=== PATIENT | female | born 1945 | race Caucasian/White ===

== ENCOUNTER 2018-10-21 11:00 | Inpatient (IN) ==
[2018-10-21 11:46] LABS: BASO# 0.03 X1000 (0.0-0.2); BASO% 0.1 % (0.0-0.8); EOS# 0.01 X1000 (0.0-0.7); HEMATOCRIT 33.4 % (37.0-47.0); HEMOGLOBIN 10.5 g/dL (12.0-16.0); IMM GRAN# 0.08 X1000 (0.0-0.04); IMM GRAN% 0.3 % (0.0-0.5); LYMPH# 1.53 X1000 (1.2-3.4); LYMPH% 6.5 % (20.5-51.1); MCH 27.8 PG (27-31); MCHC 31.4 g/dL (33-37); MCV 88.4 FL (81-99); MONO# 1.71 X1000 (0.11-0.59); MONO% 7.3 % (1.7-9.3); MPV 10.4 FL (7.4-10.4); NEUT# 20.02 X1000 (1.4-6.5); NEUT% 85.8 % (42.2-75.2); PLT 239 X1000 (130-400); RBC 3.78 XMIL (4.2-5.4); WBC 23.38 X1000 (4.8-10.8)
[2018-10-21 11:49] LABS: INR 1.52; PROTIME 18.6 Seconds (11.0-16.0)
[2018-10-21 11:50] LABS: PTT 31.7 Seconds (22.3-41.8)
[2018-10-21] MEDS ORDERED: NS 1,000 ML IV ONE ×3 (11:57→11:58)
[2018-10-21 12:08] LABS: AGAP 11; ALB/GLOB RATIO 1.5; ALBUMIN 3.4 g/dL (3.5-5.0); ALKALINE PHOSPHATASE 94 U/L (32-104); BUN 16 mg/dL (8-22); CALCIUM 8.3 mg/dL (8.8-10.2); CHLORIDE 99 mmol/L (98-107); COSMO 282; CREATININE 0.9 mg/dL (0.5-0.9); ESTIMATED GFR > 60; GLUCOSE 266 mg/dL (70-104); GOT 49 U/L (10-30); GPT 11 U/L (10-36); POTASSIUM 4.4 mmol/L (3.5-5.1); SODIUM 136 mmol/L (136-145); TCO2 26 mmol/L (25-35); TOTAL BILIRUBIN 0.33 mg/dL (0.20-1.00); TOTAL PROTEIN 5.7 g/dL (6.3-8.3)
[2018-10-21] MEDS ORDERED: LEVAQUIN 500 MG/D5W 500 MG/100 ML IVPB IV ONE (12:11)
[2018-10-21 12:12] LABS: CK PROFILE 228 U/L (24-173)
[2018-10-21 12:16] LABS: URINE SOURCE CATH
--- NOTE | 2018-10-21 12:21 | Diag Imaging Result Doc PS360 ---
CHEST-1 VIEW - 10/21/2018 INDICATION: shortness of breath COMPARISON: 12/24/2017 FINDINGS: There is ill-defined infiltrate in the right upper lobe. There is cardiomegaly and mild pulmonary vascular congestion. No pneumothorax or large pleural effusion. IMPRESSION: Right upper lobe infiltrate/pneumonia. Cardiomegaly and pulmonary vascular congestion. Electronically signed by Chuck Dawson 10/21/2018 12:19 PM
[2018-10-21 12:22] LABS: BILIRUBIN URINE NEGATIVE (NEGATIVE); BLOOD URINE NEGATIVE (NEGATIVE); COLOR YELLOW; GLUCOSE URINE NEGATIVE (NEGATIVE); KETONE URINE NEGATIVE (NEGATIVE); LEUKOCYTES URINE SMALL (NEGATIVE); NITRITE URINE POSITIVE (NEGATIVE); PH URINE 5.5; PROTEIN URINE TRACE mg/dL (NEGATIVE); SP GRAVITY URINE 1.021; TURBIDITY URINE HAZY (CLEAR); UROBILINOGEN URINE NORMAL (NORMAL)
[2018-10-21 12:24] LABS: UR EPITHELIAL CELLS >10 /HPF (<10); URINE BACTERIA 4+ /HPF; URINE RBC <10 /HPF (<10)
[2018-10-21 12:29] LABS: CK INDEX 15.7 (0.0-2.5)
[2018-10-21] MEDS ORDERED: VANCOMYCIN IV PER PHARMACY MISC SCH (13:15)
[2018-10-21] MEDS ORDERED: ZOSYN 3.375 GM in NS 50 ML IV SCH (13:15)
[2018-10-21] MEDS ORDERED: NS 1,000 ML IV SCH (13:30)
--- NOTE | 2018-10-21 13:51 | PROVIDER DOCUMENTATION ---
This chart was entered by Lea Boykin Scribe, acting as scribe for Filiberto Dominguez DO. HPI-Respiratory General - General Stated Complaint: SOB/WHEEZING Time Seen by Provider: 10/21/18 11:04 Source: EMS Allergies/Adverse Reactions: Patient Allergies Allergy/AdvReac Type Severity Reaction Status Date / Time Penicillins Allergy Unknown Verified 10/21/18 13:20 Sulfa (Sulfonamide Allergy Unknown Verified 10/21/18 13:20 Antibiotics) Home Medications: Home Medication List Medication Instructions Recorded Confirmed Last Taken Type Aspirin [Aspirin EC] 81 mg PO DAILY #90 tablet. 01/11/15 10/21/18 10/21/18 Rx Lisinopril 10 mg PO DAILY 04/06/15 10/21/18 10/21/18 History Buspirone [Buspar] 15 mg PO BID 08/30/17 10/21/18 10/21/18 History Hydralazine [Apresoline] 25 mg PO TID 08/30/17 10/21/18 10/21/18 History Tizanidine HCl 4 mg PO TID 08/30/17 10/21/18 10/21/18 History Apixaban [Eliquis] 5 mg PO BID 10/20/17 10/21/18 10/21/18 History Omeprazole 40 mg PO DAILY 10/20/17 10/21/18 10/21/18 History Diltiazem HCl [Cardizem Cd] 240 mg PO DAILY #60 cap.er.24h 01/01/18 10/21/18 10/21/18 Rx Docusate Sodium [Colace] 200 mg PO QHS capsule 01/01/18 10/21/18 10/20/18 Rx Folic Acid 1 mg PO DAILY tablet 01/01/18 10/21/18 10/21/18 Rx Furosemide [Lasix] 40 mg PO DAILY #0 01/01/18 10/21/18 10/21/18 Rx Iron Carbonyl/Ascorbic Acid 1 each PO DAILY tablet 01/01/18 10/21/18 10/21/18 Rx [Icar-C] Magnesium Hydroxide [Milk of 30 ml PO DAILY PRN PRN udc 01/01/18 Unknown Rx Magnesia] Metoprolol Succinate [Toprol Xl] 50 mg PO DAILY #60 tab.er.24h 01/01/18 10/21/18 10/21/18 Rx Oxycodone I.r. [Oxy Ir] 5 mg PO Q3H PRN PRN #40 tab 01/01/18 10/21/18 Unknown Rx Acetaminophen 2 tab PO PRN PRN 10/21/18 10/21/18 10/21/18 History Cetirizine [Zyrtec] 1 tab PO DAILY 10/21/18 10/21/18 10/21/18 History Cyanocobalamin (Vitamin B-12) 1 tab PO DAILY 10/21/18 10/21/18 10/21/18 History [Cyanocobalamin] Duloxetine [Cymbalta] 2 tab PO DAILY 10/21/18 10/21/18 10/21/18 History Ferrous Sulfate [Albafort] 1 tab PO BID 10/21/18 10/21/18 10/21/18 History Gabapentin 1 tab PO 4XDAY 10/21/18 10/21/18 10/21/18 History Metoprolol [Lopressor] 0.5 tab PO QHS 10/21/18 10/21/18 10/20/18 History Metronidazole [Flagyl] 1 tab PO BID 10/21/18 10/21/18 10/21/18 History Multivitamin with Folic Acid 1 tab PO DAILY 10/21/18 10/21/18 10/21/18 History [Thera Tablet] Oxycodone HCl 1 tab PO QHS 10/21/18 10/21/18 10/20/18 History Tramadol HCl 0.5 tab PO TID 10/21/18 10/21/18 10/21/18 History - History of Present Illness-Resp Nature of Presenting Problem: Patient is a 73 year old female who presents to the ED via EMS with shortness of breath. EMS states jail staff stated patient has nasal drainage, fever and wheezing with shortness of breath. EMS states patient's O2 sat was 89% on room air. Patient denies chest pain. Quality of Pain: reports: tightness Severity in ED: reports: mild Onset/Duration: reports: 24 hours ago Timing: reports: still present, getting worse Associated Symptoms: reports: fever/chills (fever), nasal drainage, shortness of breath, wheezing Similar Symptoms Previously?: Yes Recently seen or treated by another doctor?: No Review of Systems - Adult - REVIEW OF SYSTEMS - ADULT Constitutional: reports: see HPI, fever. denies: chills, fatique Eyes: reports: no symptoms reported Ears, Nose, Mouth & Throat: reports: see HPI, sinus problem (drainage). denies: ear pain, throat pain Cardiovascular: reports: no symptoms reported Respiratory: reports: see HPI, shortness of breath, wheezing. denies: hemoptysis Gastrointestinal: reports: no symptoms reported Genitourinary: reports: no symptoms reported Musculoskeletal: reports: no symptoms reported Integumentary: reports: no symptoms reported Neurological: reports: no symptoms reported Psychiatric: reports: no symptoms reported Endocrine: reports: no symptoms reported Hematologic/Lymphatic: reports: no symptoms reported Allergic/Immunologic: reports: no symptoms reported All Other Systems: Reviewed and Negative Past History - Adult - PAST MEDICAL HISTORY-ADULT Review of Records: reports: Old Records Reviewed, Nursing Assessment Review, Medications Reviewed, Social history reviewed & non-contributory. Major Childhood Illnesses: reports: denies history Cardiovascular: reports: A-Fib, CAD, CHF, HTN, hyperlipidemia Respiratory: reports: asthma, COPD Gastrointestinal: reports: GERD Obstetrical/Gynecological: reports: denies history Genitourinary: reports: denies history Musculoskeletal: reports: denies history Neurological: reports: cancer/tumor, dementia Psychiatric: reports: anxiety, depression Endocrine/Immune: reports: Diabetes Other Conditions: reports: denies history - PRIOR SURGERIES/PROCEDURES Surgical/Procedure History: reports: hysterectomy - IMMUNIZATION STATUS Childhood Immunizations: See Nurse Assessment Flu Vaccine: See Nurse Assessment - FAMILY HISTORY Family History: reviewed, not pertinent - SOCIAL HISTORY Smoking: cigarettes (former) Substance Use: denies Living Situation: care facility (SNF) Physical Exam-General - PHYSICAL EXAM-ADULT Initial Vital Signs Reviewed: Yes - CONSTITUTIONAL General Appearance: alert, no apparent distress. negative: lethargic - EYES Eyes: PERRL/EOMI, pink conjunctivae. negative: sunken eyes - HEAD, EARS, NOSE, MOUTH & THROAT HENMT: normocephalic/atraumatic, moist mucous membranes, pharynx normal. negative: angioedema - RESPIRATORY Respiratory: chest non-tender, wheezing (bilateral). negative: respiratory distress - CARDIOVASCULAR Cardiovascular: normal peripheral pulses, regular rate, rhythm. negative: tachycardia, systolic murmur - GASTROINTESTINAL (ABDOMEN) Abdominal Exam: normal bowel sounds, non tender, soft. negative: guarding - MUSCULOSKELETAL Extremity: non-tender, normal inspection. negative: deformity, erythema - SKIN Integumentary: normal color, normal turgor, warm/dry. negative: cyanosis, diaphoresis, ecchymosis, rash - NEUROLOGIC Neurologic: grossly normal. negative: aphasia, facial droop - PSYCHIATRIC Psych/Mental Status: normal mood/affect, other (oriented to person and place. disoriented to time). negative: anxious, paranoid Progress - PLAN OF CARE/RESULTS Progress/Plan/Lab Results: Vital Signs - 8 hr 10/21/18 11:11 10/21/18 11:17 10/21/18 11:27 Temperature 98.5 F Pulse Rate 88 Respiratory Rate 20 Blood Pressure 104/80 104/80 O2 Sat by Pulse Oximetry 100 100 95 10/21/18 12:00 10/21/18 12:11 10/21/18 12:41 Temperature Pulse Rate 96 H 90 93 H Respiratory Rate 22 21 23 Blood Pressure 110/74 120/76 O2 Sat by Pulse Oximetry 99 99 98 10/21/18 12:42 10/21/18 13:00 Temperature Pulse Rate 92 H 87 Respiratory Rate 23 20 Blood Pressure O2 Sat by Pulse Oximetry 96 Laboratory Results - last 24 hr 10/21/18 10/21/18 10/21/18 11:20 11:20 11:20 WBC 23.38 H RBC 3.78 L Hgb 10.5 L Hct 33.4 L MCV 88.4 MCH 27.8 MCHC 31.4 L RDW Std Deviation 14.0 Plt Count 239 MPV 10.4 Immature Gran % (Auto) 0.3 Neut % (Auto) 85.8 H Lymph % (Auto) 6.5 L [place] % (Auto) 7.3 Eos % (Auto) 0.0 Baso % (Auto) 0.1 Immature Gran # (Auto) 0.08 H Neut # (Auto) 20.02 H Lymph # (Auto) 1.53 [place] # (Auto) 1.71 H Eos # (Auto) 0.01 Baso # (Auto) 0.03 PT INR PTT (Actin FS) Sodium 136 Potassium 4.4 Chloride 99 Carbon Dioxide 26 Anion Gap 11 BUN 16 Creatinine 0.9 Estimated GFR/1.73 m2 > 60 BUN/Creatinine Ratio 18 Glucose 266 H Calculated Osmolality 282 Calcium 8.3 L Total Bilirubin 0.33 AST 49 H ALT 11 Alkaline Phosphatase 94 Creatine Kinase 228 H Creatine Kinase Index 15.7 H CK-MB (CK-2) 35.70 H Troponin T Zxi-M-[id number] Pept Total Protein 5.7 L Albumin 3.4 L Globulin 2.3 Albumin/Globulin Ratio 1.5 Plasma Lactate 3.7 H Urine Source Urine Color Urine Turbidity Urine pH Ur Specific [place] Urine Protein Ur Glucose (Stick) Ur Ketones (Stick) Urine Blood Urine Nitrite Urine Bilirubin Urobilinogen Dipstick Urine Leukocytes Urine WBC (Auto) Urine RBC (Auto) U Epithel Cells (Auto) Urine Bacteria (Auto) 10/21/18 10/21/18 10/21/18 11:20 11:20 11:20 WBC RBC Hgb Hct MCV MCH MCHC RDW Std Deviation Plt Count MPV Immature Gran % (Auto) Neut % (Auto) Lymph % (Auto) [place] % (Auto) Eos % (Auto) Baso % (Auto) Immature Gran # (Auto) Neut # (Auto) Lymph # (Auto) [place] # (Auto) Eos # (Auto) Baso # (Auto) PT 18.6 H INR 1.52 PTT (Actin FS) 31.7 Sodium Potassium Chloride Carbon Dioxide Anion Gap BUN Creatinine Estimated GFR/1.73 m2 BUN/Creatinine Ratio Glucose Calculated Osmolality Calcium Total Bilirubin AST ALT Alkaline Phosphatase Creatine Kinase Creatine Kinase Index CK-MB (CK-2) Troponin T 0.987 H* Tex-S-Dwbyazhdidu Pept 41315 H Total Protein Albumin Globulin Albumin/Globulin Ratio Plasma Lactate Urine Source Urine Color Urine Turbidity Urine pH Ur Specific [place] Urine Protein Ur Glucose (Stick) Ur Ketones (Stick) Urine Blood Urine Nitrite Urine Bilirubin Urobilinogen Dipstick Urine Leukocytes Urine WBC (Auto) Urine RBC (Auto) U Epithel Cells (Auto) Urine Bacteria (Auto) 10/21/18 12:12 WBC RBC Hgb Hct MCV MCH MCHC RDW Std Deviation Plt Count MPV Immature Gran % (Auto) Neut % (Auto) Lymph % (Auto) [place] % (Auto) Eos % (Auto) Baso % (Auto) Immature Gran # (Auto) Neut # (Auto) Lymph # (Auto) [place] # (Auto) Eos # (Auto) Baso # (Auto) PT INR PTT (Actin FS) Sodium Potassium Chloride Carbon Dioxide Anion Gap BUN Creatinine Estimated GFR/1.73 m2 BUN/Creatinine Ratio Glucose Calculated Osmolality Calcium Total Bilirubin AST ALT Alkaline Phosphatase Creatine Kinase Creatine Kinase Index CK-MB (CK-2) Troponin T Gqi-A-Cqxgqorlrjk Pept Total Protein Albumin Globulin Albumin/Globulin Ratio Plasma Lactate Urine Source CATH Urine Color YELLOW Urine Turbidity HAZY Urine pH 5.5 Ur Specific [place] 1.021 Urine Protein TRACE A Ur Glucose (Stick) NEGATIVE Ur Ketones (Stick) NEGATIVE Urine Blood NEGATIVE Urine Nitrite POSITIVE A Urine Bilirubin NEGATIVE Urobilinogen Dipstick NORMAL Urine Leukocytes SMALL A Urine WBC (Auto) 10-20 A Urine RBC (Auto) <10 U Epithel Cells (Auto) >10 A Urine Bacteria (Auto) 4+ Orders Category Date [facility] Routine AdmDCTranf 10/21/18 13:22 Active Activity - Up with Assistance ORDERED Care 10/21/18 13:22 Active Cardiac Monitoring DIRECTED Care 10/21/18 11:20 Active IV Insertion ORDERED Care 10/21/18 11:20 Completed Notify MD of + Sepsis Screen NOW Care 10/21/18 11:20 Active Notify Physician As Ordered Care 10/21/18 11:20 Active Nursing- MD Consult Request ROUTINE Care 10/21/18 13:22 Active Resuscitation Status Routine Care 10/21/18 13:17 Ordered Update & Confirm Home Medicati ROUTINE Care 10/21/18 13:23 Active Physician/Provider Consults Routine Cons 10/21/18 13:22 Ordered Heart Healthy Diet Diet 10/21/18 13:23 Active CHEST-1 VIEW [RAD] Stat Exams 10/21/18 11:20 Completed BLOOD CULTURE [BLDCUL] Stat Lab 10/21/18 11:21 Results CBC WITH ELECTRONIC DIFF [HEME] Stat Lab 10/21/18 11:20 Completed CK PROFILE [SP CHEM] Stat Lab 10/21/18 11:20 Completed COMPREHENSIVE METABOLIC PANEL [CHEM] Stat Lab 10/21/18 11:20 Completed LACTATE, PLASMA [CHEM] Lab 10/21/18 14:30 Uncollected LACTATE, PLASMA [CHEM] Lab 10/21/18 17:30 Uncollected LACTATE, PLASMA [CHEM] Q3H Lab 10/21/18 11:20 Completed LEGIONELLA AG URINE [LEE] Routine Lab 10/21/18 12:12 Received PRO B-NATRIURETIC PEPTIDE Stat Lab 10/21/18 11:20 Completed PROTIME WITH INR [COAG] Stat Lab 10/21/18 11:20 Completed PTT [COAG] Stat Lab 10/21/18 11:20 Completed SPUTUM CULTURE WITH GRAM STAIN [] Stat Lab 10/21/18 12:49 Uncollected STREP PNEUMO AG URINE [[place]] Routine Lab 10/21/18 12:12 Received TROPONIN T Stat Lab 10/21/18 11:20 Completed URINALYSIS W/POSS RFLX CULT [URINALYSIS] Stat Lab 10/21/18 12:12 Completed URINE CULTURE [] Routine Lab 10/21/18 12:31 Received 0.9% Sodium Chloride Inj [Ns] 1,000 ml Med 10/21/18 13:30 Active IV 50 mls/hr 0.9% Sodium Chloride Inj [Ns] 1,000 ml Med 10/21/18 11:57 Discontinued IV 999 mls/hr 0.9% Sodium Chloride Inj [Ns] 1,000 ml Med 10/21/18 11:58 Discontinued IV 999 mls/hr 0.9% Sodium Chloride Inj [Ns] 1,000 ml Med 10/21/18 11:58 Discontinued IV 999 mls/hr Budesonide [Pulmicort] Med 10/21/18 19:30 Active 0.5 mg INH RTBID CefEPIME [Maxipime] 1 gm Med 10/21/18 14:00 Active 0.9% Sodium Chloride Inj [Ns] 50 ml IV Q12H Ipratropium [place] Neb [Atrovent Neb] Med 10/21/18 15:30 Active 0.5 mg INH RTQ4H Levalbuterol Neb [Xopenex Neb] Med 10/21/18 15:30 Active 1.25 mg INH RTQ4H Levofloxacin 500 mg/D5w [Levaquin 500 mg/D5w] Med 10/21/18 12:11 Discontinued 500 mg in 100 ml IV NOW Pharmacy Order [Vancomycin IV Per Pharmacy] Med 10/21/18 13:15 Active 1 each MISC DIRECTED Piperacillin/Tazobactam [Zosyn] 3.375 gm Med 10/21/18 13:15 Discontinued 0.9% Sodium Chloride Inj [Ns] 50 ml IV Q6H Aerosol Treatments Routine Oth 10/21/18 13:22 Active Oxygen Device Stat Oth 10/21/18 11:20 Active EKG [EKG] Stat Ther 10/21/18 13:00 Ordered Transfer/Admit Order [TRANSFER] Routine Transfer 10/21/18 13:17 Ordered Result Diagrams: 10/21/18 11:20 10/21/18 11:20 - EKG 1 Time of EKG reading by physician:: 11:08 EKG Read and Signed by:: Filiberto Dominguez EKG Interpretation (*Must complete 3 of following elements*): Abnormal (rhythm - atrial fibrillation with rapid ventricular response with premature ventricular or aberrantly conducted complexes. marked ST abnormality, possible lateral subendocardial injury.) Rate: 108 [place]: normal ST Wave: normal Comments: possible inferior infarct, age undetermined; - XRAY 1 XRAY Study: Chest Impression: See EMR Report ( CHEST-1 VIEW - 10/21/2018 INDICATION: shortness of breath COMPARISON: 12/24/2017 FINDINGS: There is ill-defined infiltrate in the right upper lobe. There is cardiomegaly and mild pulmonary vascular congestion. No pneumothorax or large pleural effusion. IMPRESSION: Right upper lobe infiltrate/pneumonia. Cardiomegaly and pulmonary vascular congestion. Electronically signed by Chuck Dawson 10/21/2018 12:19 PM 10/21/18 1219 Interpreting Physician: Chuck Dawson MD Dictated Date/Time: 10/21/18 1218 cc: Filiberto Dominguez DO; Franc Baltazar MD) - CONSULTS/PCP/HOSPITALIST Notification #1 *Consult/PCP/Hospitalist*: MONISHA Rosales for Hospitalist Time Discussed: 12:33 Reason/Comments: Dr. Dominguez consulted with Connie about patient. Consult Disposition: other (consult Insurance Processing Clerk) #2 Consult: Dr. Conway Time Discussed: 13:22 Reason/Comments: Dr. Dominguez consulted with Dr. Conway about patient. Consult Disposition: other (Dr. Conway states he will consult on patient.) #3 Consult: MONISHA Rosales for Hospitalist Time Discussed: 13:16 Reason/Comments: Dr. Dominguez consulted with Connie about patient. Consult Disposition: Will see in ED, Admit Departure - Departure Date of Disposition Decision: 10/21/18 Time of Disposition Decision: 12:33 DIAGNOSIS: Pneumonia, Atrial fibrillation with RVR, NSTEMI (non-ST elevation myocardial infarction) Disposition: ADMITTED INPATIENT 09 Certified Medical Emergency: Emergent Condition: Fair - Critical Care Note This patient required my direct & personal management of CC.: No Attestation - Physician/ NOEL Attestation The physician spent face to face time with patient:: Yes Advanced Practice Provider documentation review:: Supervising physician onsite and consulted in the evaluation and care of this patient. The physician did have a face to face encounter with the patient. This chart was documented by the indicated scribe, (Lea Boykin Scribe) and accurately reflects the services I performed and decisions made by me, Filiberto Dominguez DO, as attested by the provider's signature.
[2018-10-21] MEDS: MAXIPIME 1 GM in NS 50 ML IV SCH (14:19)
[2018-10-21] MEDS: LASIX IV SCH ×2 (14:32→20:59)
[2018-10-21] MEDS ORDERED: SOLU-MEDROL IV ONE (14:35)
--- NOTE | 2018-10-21 14:37 | EKG Report ---
Test Performed on : 10/21/2018 11:08:54 AM Test Reason : abnormal ekg Blood Pressure : / mmHG Vent. Rate : 108 BPM Atrial Rate : 110 BPM P-R Int : 000 ms QRS Dur : 100 ms QT Int : 364 ms P-R-T Axes : 000 024 173 degrees QTc Int : 487 ms Atrial fibrillation. with rapid ventricular response. with premature ventricular or aberrantly conduc giuseppe complexes. Possible Inferior infarct (cited on or before 30-AUG-2017) Marked ST abnormality, possible lateral subendocardial injury Abnormal ECG When compared with ECG of 26-DEC-2017 00:41, T wave inversion more evident in Lateral leads Unconfirmed Result
[2018-10-21] MEDS ORDERED: LASIX ONE (14:40)
[2018-10-21] MEDS: ATROVENT NEB INH SCH ×3 (14:58→23:39)
[2018-10-21] MEDS: XOPENEX NEB INH SCH ×3 (14:58→23:39)
[2018-10-21] MEDS ORDERED: VANCOMYCIN 1,700 MG in NS 250 ML IV ONE (15:00)
[2018-10-21] MEDS ORDERED: OXY IR PO PRN ×2 (15:06→16:06)
[2018-10-21] MEDS ORDERED: ZANAFLEX PO PRN (16:07)
[2018-10-21 16:08] LABS: CK INDEX 13.2 (0.0-2.5); CK-MB 44.98 ng/mL (0.0-5.0)
[2018-10-21] MEDS ORDERED: ASPIRIN PO STA (16:19)
[2018-10-21] MEDS ORDERED: LOPRESSOR PO ONE (16:21)
--- NOTE | 2018-10-21 16:22 | HISTORY AND PHYSICAL ---
PRIMARY CARE PROVIDER: Franc Baltazar MD. CHIEF COMPLAINT: Shortness of breath and choking. HISTORY OF PRESENT ILLNESS: Ms. Tremaine Fernandes is a 73-year-old female with a medical history of coronary artery disease, congestive heart failure, and diabetes who presents from [facility] with complaints of choking sensation and shortness of breath over the last 1 to 2 weeks. She has a nonproductive cough. She denies fever or chest pain. Laboratory data reveals that she has an elevated white blood cell count number of 23,000 with a serum lactate of 3.7. Chest x-ray shows a right upper lobe pneumonia which is consistent with more of an aspiration pneumonia given the fact that she is complaining of having periods of feeling like she is choking when she has eaten. She also has elevated troponin of 0.987 and index of 15 but denies any chest pain. Her proBNP is 15,000. Actually during assessment and interview, she started to develop pulmonary edema secondary to receiving IV fluid boluses due to elevated lactate and the sepsis. Review of her last echocardiogram in December 2017, she had an ejection fraction of 30%. It is noted that she does have a urinalysis that appears to be positive with urinary tract infection versus something that is chronic. She denies having any urinary symptoms at this time. Cardiology has been consulted. We will admit to the PCV unit for close observation. PAST MEDICAL HISTORY: 1. History of brain cancer with a craniotomy and brain tumor resection. 2. Coronary artery disease status post LAD stent in 2008. She states there were 2 stents. 3. Hypertension. 4. Chronic atrial fibrillation on Eliquis. 5. Diabetes mellitus type 2 without insulin. 6. Anxiety, depression. 7. GERD. 8. Chronic systolic congestive heart failure. In 2014, she had an EF of 60%, but then in 2018 it was down to 30%. 9. Hyperlipidemia. 10. COPD. 11. Current tobacco abuse. 12. Chronic pain. 13. Left eye blindness. PAST SURGICAL HISTORY: 1. Cardiac stent to the LAD x2 in 2008. 2. Left hip replacement. 3. Brain tumor resection. SOCIAL HISTORY: She has been living in [facility] less than 1 year but states she still continues to smoke about a pack per day. She has been smoking since age of 12. She denies any alcohol or illicit drug use. FAMILY HISTORY: She denies. ALLERGIES: Penicillin and sulfa. HOME MEDICATIONS: 1. Toprol extended release; metoprolol succinate 50 mg p.o. daily. On top of that she also takes an extra dose of immediate release 25 mg at night. 2. Oxycodone 5 mg p.o. nightly. 3. Tylenol 650 mg p.o. as needed q.4 hours. 4. Ferrous sulfate 325 mg p.o. twice a day. 5. Hydralazine 25 mg p.o. t.i.d. 6. BuSpar 15 mg p.o. twice a day. 7. Vitamin B12, 1000 mcg p.o. daily. 8. Cymbalta 40 mg p.o. daily. 9. Eliquis 5 mg p.o. twice daily. 10. Flagyl 500 mg p.o. twice daily which was supposed to stop on the . 11. Neurontin 300 mg p.o. 4 times a day. 12. Lisinopril 10 mg p.o. daily. 13. Omeprazole 40 mg p.o. daily. 14. Multivitamin with folic acid 1 tablet p.o. daily; it is 400 mcg. 15. Tizanidine HCL 4 mg p.o. t.i.d. 16. Tramadol 25 mg p.o. t.i.d. 17. Zyrtec 10 mg p.o. daily. 18. Colace 200 mg p.o. nightly. 19. Oxycodone IR 5 mg p.o. every 3 hours p.r.n. 20. Aspirin enteric-coated 81 mg p.o. daily. 21. Cardizem 240 mg p.o. daily. 22. Folic acid 1 mg p.o. daily. 23. Icar-C 1 p.o. daily. 24. Lasix 40 mg p.o. daily. REVIEW OF SYSTEMS: Fourteen-point review of systems are complete, and all were negative except for those mentioned above in HPI. PHYSICAL EXAMINATION: VITAL SIGNS: Temperature 98.1 degrees, heart rate 95, respiratory rate 30, blood pressure 134/104, O2 saturation 96% on 3 L nasal cannula. GENERAL: Ms. Tremaine Fernandes is a 73-year-old female. Originally when assessment and interview started, she was without distress. In the middle of interviewing, she became short of breath with audible wheezing but was still able to answer questions. HEENT: Atraumatic, normocephalic. Pupils equal, round, and reactive to light. Extraocular movements intact. Mucous membranes are moist. NECK: Trachea midline. CARDIOVASCULAR: Irregularly irregular. Tachycardic rate and rhythm. No rubs, gallops, or murmurs. She has trace lower extremity edema. With +1 dorsalis pedal pulses, +2 radial pulses. Negative for carotid bruits. Difficult to assess JVD due to body habitus. PULMONARY: Coarse with crackles throughout along with audible wheezing. Tolerating nasal cannula. GI: Soft, nontender, nondistended. Positive bowel sounds x4. EXTREMITIES: Moves all extremities equally. Decreased range of motion. NEUROLOGIC: A and O x3. Follows commands. Sensory is intact. SKIN: Warm, dry, and intact. She is hard of hearing. LABORATORY DATA: White blood cells 23,000, hemoglobin 10, hematocrit 33, platelet count 239,000. INR is 1.52. Sodium 136, potassium 4.4, BUN 16, creatinine 0.9, glucose 266. Calcium 8.3, bilirubin 0.33, AST 49, ALT 11, CK 228. Index is 15.7, MB 35. Troponin 0.987. ProBNP is 15,129. Albumin 3.4. Serum lactate was 3.7. Urinalysis trace protein, positive nitrites, small leukocytes, 10 to 20 white blood cells, 4+ bacteria. IMAGING: Chest x-ray with right upper lobe infiltrate, pneumonia. Cardiomegaly with pulmonary vascular congestion. EKG: Atrial fibrillation with rapid response of 108. QTc is 487. Lateral leads do have a little bit of T-wave inversion. ASSESSMENT AND PLAN: 1. Sepsis secondary to right upper lobe pneumonia and possibly due to urinary tract infection. She will be on cefepime and vancomycin. She did receive sepsis protocol with IV fluid boluses in the emergency department, but the fluid boluses also sent her in to an acute congestive heart failure. We will hold off on continuous fluid replacement at this time. We will continue with the serial lactate checks and we will put her in PVC unit to closely monitor. 2. Elevated troponins secondary to don-EL-lpozbuh elevation myocardial infarction versus acute congestive heart failure. They have quite elevated. The index is also elevated. Cardiology has been notified. We will do serial cardiac enzymes. On aspirin and Eliquis. Beta myrna. She is currently not on a statin. 3. Chronic obstructive pulmonary disease, possible exacerbation requiring oxygen. Having expiratory wheezes which could be more in conjunction with congestive heart failure. Due to the sudden onset of it, we will go ahead and treat with IV steroids, and she is going to have scheduled nebulizers. 4. Euvtn-dw-mhxqdek systolic congestive heart failure. December 2017 had an EF of 30%. In 2014, it was actually 60%. We will do an echocardiogram in the morning. She has gotten now an IV dose of Lasix and will receive 40 IV every 12 hours. ProBNP is greater than 15,000, and she received fluid boluses due to her sepsis protocol. This in turn has likely caused the acute exacerbation. 5. Right upper lobe pneumonia again on antibiotics. Since this location is due to high risk of aspiration and she states that she has had issues with some choking, we will get a swallow evaluation on her. 6. Urinary tract infection Positive nitrites and white blood cells and bacteria. She was on Flagyl for a vaginosis. Will follow up with the urine culture. She is actually denying any symptoms of urinary tract infection. 7. Hypertension. Continue beta myrna and lisinopril. 8. Chronic atrial fibrillation. Continue Lovenox, aspirin, Cardizem, and beta myrna. Currently, rate is somewhat controlled. The highest is low 100. 9. Tobacco abuse. Cessation discussed. 10. Chronic pain. Continue oxycodone and Ultram. Muscle relaxer. Dictated by MONISHA Manzano for Spencer La MD cc: MONISHA Manzano MD I agree with most components of history, physical, assessment and plan. A separate addendum has been dictated. [facility]
[2018-10-21] MEDS ORDERED: CARDIZEM PO SCH (16:30)
[2018-10-21] MEDS ORDERED: CARDIZEM CD PO ONE (16:35)
[2018-10-21] MEDS ORDERED: ZANAFLEX PO SCH (17:00)
[2018-10-21] MEDS ORDERED: APRESOLINE PO SCH (17:00)
[2018-10-21] MEDS ORDERED: ULTRAM PO SCH (17:00)
--- NOTE | 2018-10-21 17:04 | HISTORY AND PHYSICAL ---
ADDENDUM: I agree with most components of history, physical, assessment and plan. In brief Ms Dom is 73-year-old lady with past medical history of chronic atrial fibrillation on Eliquis, anxiety, chronic pain, chronic systolic congestive heart failure with ejection fraction of 30% in December 2017, COPD, active tobacco abuse, coronary artery disease requiring stent in 2008 in LAD, brain cancer status post craniotomy, cognitive impairment, who [facility] for chief complaint of fever, wheezing and shortness of breath. Apparently her oxygen saturation on room air was less than 90% in [facility]. While in the emergency room she was found to have sepsis due to right upper lobe pneumonia so the hospitalist team was consulted for further management. SUBJECTIVE: The patient is a poor historian. She is alert but does not contribute to the history meaningfully. She states she is feeling short of breath. She denies any chest pain. Currently vitals temperature 98.5 degrees, pulse 99, respiratory 28, blood pressure 130/100, she is saturating 93% on 3 L nasal cannula. PHYSICAL EXAMINATION: GENERAL: She is in mild distress because of shortness of breath. Oral cavity is moist. She does have bronchial breath sound on the right suprascapular region with inspiratory crackles. She also has bilateral inspiratory crackles infrascapular region. No wheeze or rhonchi. CARDIOVASCULAR: S1, S2. Irregularly irregular. No murmur or gallop. ABDOMEN: Soft, nontender. No lower extremity edema. She is alert. She is moving all extremities spontaneously. However does not contribute to the history meaningfully. LABS: Suggestive of leukocytosis, normocytic anemia, elevated INR in the setting of Eliquis use, elevated troponin, pyuria, urine culture, blood cultures are in lab. EKG had lateral ST depression and T-wave inversion. Her chest x-ray has right upper lobe pneumonia. ASSESSMENT AND PLAN: 1. Sepsis and acute hypoxic respiratory failure due to right upper lobe pneumonia. 2. Non ST elevation lateral myocardial infarction with previous history of stent in left anterior descending in 2008. 3. Pyuria with unclear urinary symptoms. 4. Acute on chronic congestive heart failure exacerbation systolic. 5. Atrial fibrillation with rapid ventricular response PLAN: 1. Follow up blood culture, sputum culture, urine antigen. Continue patient on intravenous vancomycin and cefepime. Continue intravenous Lasix and intravenous steroids. 2. For chronic atrial fibrillation with rapid ventricular rate I will start her on her home medication. I will also change her Eliquis to enoxaparin considering she may need coronary angiography at some point. Plan of care discussed with patient and the nursing team. Their questions have been answered. cc: Spencer La MD MTDD
[2018-10-21] MEDS: LOVENOX SUBQ SCH (17:09)
[2018-10-21] MEDS: FERROUS SULFATE PO SCH (17:09)
[2018-10-21] MEDS: NEURONTIN PO SCH ×2 (17:09→20:56)
[2018-10-21 17:21] LABS: URINE SOURCE CATH
[2018-10-21 17:26] LABS: BILIRUBIN URINE NEGATIVE (NEGATIVE); BLOOD URINE NEGATIVE (NEGATIVE); COLOR STRAW; GLUCOSE URINE NEGATIVE (NEGATIVE); KETONE URINE NEGATIVE (NEGATIVE); LEUKOCYTES URINE NEGATIVE (NEGATIVE); NITRITE URINE NEGATIVE (NEGATIVE); PROTEIN URINE NEGATIVE (NEGATIVE); SP GRAVITY URINE 1.007; TURBIDITY URINE CLEAR (CLEAR); UROBILINOGEN URINE NORMAL (NORMAL)
[2018-10-21 17:27] LABS: UR EPITHELIAL CELLS <10 /HPF (<10); URINE BACTERIA NEGATIVE /HPF; URINE RBC <10 /HPF (<10); URINE WBC <10 /HPF (<10)
--- NOTE | 2018-10-21 17:38 | CONSULTATION ---
DATE OF CONSULTATION: 10/21/2018 IMPRESSION: 1. Right-sided pneumonia with recent cough and leukocytosis. 2. Component of pulmonary edema also suggested by chest x-ray. 3. Ischemic cardiomyopathy. Echocardiography December 2018 indicated left ejection fraction of 30%. 4. Non ST elevation myocardial infarction. I suspect this very well may be a secondary event related to acuity of her illness with pneumonia and congestive heart failure. 5. Atherosclerotic coronary disease with previous coronary angioplasty/stenting of left anterior descending coronary in 2008. 6. Permanent atrial fibrillation. 7. Hypertension. 8. Type 2 diabetes mellitus. 9. Anxiety/depression. 10. Apparent component of dementia. Patient has very poor short-term memory. RECOMMENDATIONS: 1. Agree with diuresis with intravenous Lasix. 2. Treat for pneumonia with parental antibiotics as you are doing. 3. Repeat echocardiography. 4. Continue to manage atrial fibrillation with rate control and anticoagulation. 5. Given her significant dementia and limited functional status, favor a conservative overall approach gravitating towards medical management. HISTORY: This 73-year-old white female with past history of permanent atrial fibrillation, ischemic cardiomyopathy, previous coronary angioplasty/stent of left anterior descending coronary in 2008, hypertension, type 2 diabetes mellitus, hyperlipidemia, COPD, and dementia was admitted on transfer from the senior living for further management of respiratory difficulties. She has difficulty recalling recent symptoms. She relates that she got lightheadedness. Records indicate that she started having problems with cough and shortness of breath. She denies chest pain and there is no indication that she had reported any chest pain. In emergency room she was found to have right upper lobe infiltrate suggesting pneumonia. There is also some suggestion of pulmonary edema. She had significant leukocytosis. She was felt to have acute pneumonia. Cardiac enzymes were abnormal suggesting non ST elevation myocardial infarction. For this reason, Cardiology was consulted. She denies any chest pain. Last echocardiography indicated left ventricular ejection fraction 30% in December 2017. PAST MEDICAL HISTORY: 1. Atherosclerotic coronary disease with previous angioplasty/stent of left anterior descending coronary in 2008. 2. Ischemic cardiomyopathy. Patient has had an inferior infarction at some point in the past. Last echocardiography indicated left ejection fraction 30% with inferior akinesis in December 2017. 3. Permanent atrial fibrillation. 4. Hypertension. 5. Type 2 diabetes mellitus. 6. Anxiety/depression. 7. COPD. 8. Hyperlipidemia. 9. Gastroesophageal reflux disease. 10. Dementia. PAST SURGICAL HISTORY: Includes hysterectomy. Some records in the past indicate that she had a brain tumor removed at some point in the past although she denies this. ALLERGIES: She is allergic or intolerant to penicillins and sulfa. MEDICATIONS PRIOR TO ADMISSION: As listed. SOCIAL HISTORY: She has history of chronic cigarette use and smokes cigarettes since age 12. She has smoked 1 pack of cigarettes per day. She does not use alcohol. FAMILY HISTORY: Negative for premature coronary disease. REVIEW OF SYSTEMS: Pulmonary: Noteworthy for shortness of breath and cough. Gastrointestinal: Negative. Constitutional: Noteworthy for reported low-grade fever. Remainder of review of systems negative/noncontributory with 14 total systems reviewed. PHYSICAL EXAMINATION: General: This is a overweight older white female in no distress on supplemental oxygen. Vital signs: Blood pressure 147/92, heart rate 110 and irregular. Oxygen saturation 94% on nasal cannula oxygen. HEENT: Extraocular muscles appear intact. Mucous membranes are moist. Neck: Supple without discernible jugular distention. There are no carotid bruits. Chest: Auscultation chest reveals some inspiratory crackles in the right upper chest region. No rales could be appreciated. Cardiac: Reveals a regular rate and rhythm without appreciable murmur or gallop. Abdomen: Soft. Bowel sounds are normal. Extremities: Cool distally. There is no peripheral edema. Neurologic: Reveals her to be alert and responsive. Speech is fluent. She moves all 4 extremities equally well. She seems to have poor short-term memory. DATA: Twelve lead EKG is reviewed and demonstrates atrial fibrillation with ventricular rate response of 108 beats per minute with occasional premature ventricular aberrantly conducted complexes, inferior infarct, old and T-wave abnormality, consider possible lateral ischemia. Chest x-ray is reviewed and demonstrates right upper lobe infiltrate suggesting pneumonia. There is also suggestion of early pulmonary edema. LABORATORY DATA: Includes a white blood cell count 23.38, hematocrit 33.4, hemoglobin 10.5, platelet count 239,000. Sodium 136, potassium 4.4, chloride 99, carbon dioxide 26, BUN 16, creatinine 0.9. Glucose 266. CPK 340, CPK-MB 44.98, CPK-MB index 13.2. Initial CPK 228 with followup CPK 340, initial CPK MB 35.7 with a followup CPK-MB of 44.98, initial CPK-MB index 15.7 with followup CPK-MB index 13.2. Initial troponin 0.987 with followup troponin 1.590. Pro B natriuretic peptide level 15,129. Albumin 2.3. cc: Bautista Conway MD
[2018-10-21] MEDS: PULMICORT INH SCH (19:33)
[2018-10-21] MEDS: BUSPAR PO SCH (20:56)
[2018-10-21] MEDS: LOPRESSOR PO SCH (20:56)
[2018-10-21] MEDS: COLACE PO SCH (20:56)
[2018-10-21] MEDS ORDERED: OXY IR PO SCH (21:00)
[2018-10-21] MEDS ORDERED: ELIQUIS PO SCH (21:00)
[2018-10-21] MEDS ORDERED: SOLU-MEDROL IV SCH (23:00)
[2018-10-21 23:49] LABS: CK INDEX 11.4 (0.0-2.5); CK-MB 25.89 ng/mL (0.0-5.0)
[2018-10-22] MEDS: ATROVENT NEB INH SCH ×6 (03:38→22:46)
[2018-10-22] MEDS: XOPENEX NEB INH SCH ×6 (03:38→22:46)
[2018-10-22] MEDS: MAXIPIME 1 GM in NS 50 ML IV SCH ×2 (03:52→13:51)
[2018-10-22] MEDS: LOVENOX SUBQ SCH (03:52)
[2018-10-22] MEDS: PRILOSEC PO SCH ×2 (05:49→06:01)
--- NOTE | 2018-10-22 07:32 | Diag Imaging Result Doc PS360 ---
EXAM: CHEST-PORTABLE INDICATION: Pneumonia TECHNIQUE: One view COMPARISON: 10/21/2018 FINDINGS: The left central line appears stable. Right upper lobe consolidation is grossly unchanged. Mild pulmonary venous congestion appears stable. No new consolidation is identified. Cardiac silhouette is stable. IMPRESSION: Grossly stable chest. Electronically signed by Erick Yanez 10/22/2018 7:30 AM
[2018-10-22 07:35] LABS: BASO# 0.01 X1000 (0.0-0.2); BASO% 0.1 % (0.0-0.8); IMM GRAN# 0.04 X1000 (0.0-0.04); IMM GRAN% 0.3 % (0.0-0.5); LYMPH# 0.53 X1000 (1.2-3.4); MCH 27.4 PG (27-31); MCHC 31.3 g/dL (33-37); MCV 87.7 FL (81-99); MONO# 0.35 X1000 (0.11-0.59); MONO% 2.7 % (1.7-9.3); MPV 10.5 FL (7.4-10.4); NEUT# 12.18 X1000 (1.4-6.5); NEUT% 92.9 % (42.2-75.2); PLT 215 X1000 (130-400); RBC 3.65 XMIL (4.2-5.4); RDW 13.7 % (11.5-14.5); WBC 13.11 X1000 (4.8-10.8)
[2018-10-22 07:49] LABS: LYMPHS 4 % (21-51); SEGS 96 % (42-75)
[2018-10-22] MEDS: PULMICORT INH SCH ×2 (08:23→19:23)
[2018-10-22 08:34] LABS: AGAP 13; ALB/GLOB RATIO 1.1; ALBUMIN 3.3 g/dL (3.5-5.0); ALKALINE PHOSPHATASE 90 U/L (32-104); BUN 16 mg/dL (8-22); CALCIUM 8.5 mg/dL (8.8-10.2); CHLORIDE 99 mmol/L (98-107); COSMO 288; CREATININE 0.7 mg/dL (0.5-0.9); ESTIMATED GFR > 60; GLUCOSE 341 mg/dL (70-104); GOT 45 U/L (10-30); GPT 16 U/L (10-36); POTASSIUM 3.4 mmol/L (3.5-5.1); SODIUM 137 mmol/L (136-145); TCO2 25 mmol/L (25-35); TOTAL BILIRUBIN 0.27 mg/dL (0.20-1.00); TOTAL PROTEIN 6.2 g/dL (6.3-8.3)
[2018-10-22] MEDS ORDERED: CARDIZEM CD PO SCH (09:00)
[2018-10-22] MEDS ORDERED: PRINIVIL PO SCH (09:00)
[2018-10-22] MEDS ORDERED: VITAMIN B-12 PO SCH (09:00)
[2018-10-22] MEDS ORDERED: LIPITOR PO ONE (09:48)
[2018-10-22] MEDS: ASPIRIN EC PO SCH (10:07)
[2018-10-22] MEDS: SOLU-MEDROL IV SCH (10:07)
[2018-10-22] MEDS: CYMBALTA PO SCH (10:07)
[2018-10-22] MEDS: LASIX IV SCH (10:07)
[2018-10-22] MEDS: THERA M PLUS PO SCH (10:08)
[2018-10-22] MEDS: BUSPAR PO SCH ×2 (10:08→21:21)
[2018-10-22] MEDS: FOLIC ACID PO SCH (10:08)
[2018-10-22] MEDS: LOPRESSOR PO SCH (10:08)
[2018-10-22] MEDS: ZYRTEC PO SCH (10:08)
[2018-10-22] MEDS: KLOR-CON PO SCH ×2 (10:08→13:51)
[2018-10-22] MEDS: ICAR-C PO SCH (10:08)
[2018-10-22] MEDS: FERROUS SULFATE PO SCH ×2 (10:08→17:36)
[2018-10-22] MEDS: NEURONTIN PO SCH ×4 (10:08→21:21)
--- NOTE | 2018-10-22 10:09 | PROGRESS NOTE ---
DATE: 10/22/2018 INTERVAL HISTORY: Her lactate become normal. Her troponins were increasing, and they finally peaked at 1.5. Since then, they have been trending down. No other acute overnight events. Her breathing has been better. She is denying any shortness of breath. SUBJECTIVE: She is denying chest pain or shortness of breath, though she is coughing during examination. Sputum culture has not been collected. I discussed with her about the plans, and answered all of her questions. OBJECTIVE: Current Vital Signs: Temperature 97.3 degrees, pulse 90, respiratory rate 25, blood pressure 160/90, saturating 96% on 4 L nasal cannula. General: Does not appear in any acute distress. HEENT: Oral cavity is moist. She has bronchial breath sound on the right suprascapular region. Inspiratory crackles, bilateral infrascapular region, as well as end- expiratory mild wheezes. Heart: S1, S2 normal. Irregularly irregular. No murmur or gallop. Abdomen: Soft, nontender. Extremities: No lower extremity edema. Neurologic: She is alert. Her left pupil is dilated. She states she cannot see from her left eye. However, history is questionable. She is moving all extremities spontaneously. Input and output suggest -2.5 L so far. LABORATORY DATA: Labs are suggestive of improving leukocytosis, normal hemoglobin, normal platelet count, and zero eosinophil count. She does have hypokalemia, being repleted. Normal kidney function. Decreasing troponins. MICROBIOLOGY: Urine culture: Gram-negative rods. IMAGING: Chest x-ray suggests persistent right upper lobe infiltrate. ASSESSMENT AND PLAN: 1. Sepsis, lactic acidosis, and acute hypoxic respiratory failure due to right upper lobe pneumonia. Follow up sputum culture, blood culture, urine antigens. Continue intravenous vancomycin and intravenous cefepime. Continue oxygenation to maintain saturation more than 94%. 2. Non ST-elevation myocardial infarction with previous history of stent in left anterior descending in 2009, and current electrocardiogram suggestive of lateral ST depressions. Continue her on aspirin, therapeutic dose of enoxaparin, beta myrna, and add atorvastatin. Cardiology on board. Appreciate recommendation about future need for coronary angiography. Follow up echocardiogram results. 3. Congestive heart failure with ejection fraction of 30% in 2018 with acute exacerbation of systolic congestive heart failure and acute pulmonary edema. Continue intravenous Lasix. Followup repeat echocardiogram. Replete potassium. 4. Mild acute chronic obstructive pulmonary disease exacerbation. Continue levalbuterol/ipratropium nebulization and intravenous steroids. 5. Pyuria. Her symptoms are unclear as she is a poor historian. 6. Atrial fibrillation with rapid ventricular rate. Continue home diltiazem and beta blockers. Follow up with echocardiogram. If her ejection fraction is decreasing, she may need alternative agents to calcium channel blockers. Appreciate Cardiology recommendations. 7. Disposition. Continue to monitor the patient on cardiac telemetry unit. Plan of care discussed with the patient. All of her questions have been answered. In the future, I will consider changing enoxaparin to Eliquis for atrial fibrillation, which was her home medication. cc: Spencer La MD
--- NOTE | 2018-10-22 10:30 | EKG Report ---
Test Performed on : 10/22/2018 10:23:30 AM Test Reason : FOllow up lateral ST T changes Blood Pressure : / mmHG Vent. Rate : 096 BPM Atrial Rate : 098 BPM P-R Int : 000 ms QRS Dur : 108 ms QT Int : 366 ms P-R-T Axes : 000 024 208 degrees QTc Int : 462 ms Atrial fibrillation. with premature ventricular or aberrantly conducted complexes. Inferior infarct (cited on or before 30-AUG-2017) Marked ST abnormality, possible lateral subendocardial injury Abnormal ECG When compared with ECG of 21-OCT-2018 11:08, (Unconfirmed) T wave inversion more evident in Inferior leads Confirmed by Yoan MORENO, MAlejandra Tompkins ([id number]) on 10/23/2018 12:06:50 PM
--- NOTE | 2018-10-22 13:23 | ECHO REPORT ---
ORDER DATE: 10/22/2018 INDICATION: Shortness of breath, pulmonary edema. FINDINGS: 1. Right atrium appears severely enlarged with a dimension of 5 cm. 2. Moderate tricuspid regurgitation. RV systolic pressure is 53 mmHg. 3. Normal RV size and systolic function. 4. Mild pulmonic insufficiency. 5. Suggestion of severe left atrial enlargement with a volume index of 51. 6. No mitral valve prolapse. Likely moderate mitral regurgitation. This is an eccentric jet. There is mild mitral annular calcification. 7. The left ventricle appears normal in size with an end-diastolic dimension of 5.4. Normal wall thicknesses with a posterior and interventricular septal wall thickness of 1.1 cm each. Normal LV systolic function with an estimated EF of 55% to 60%. Optison echo contrast was used on this study. There may be some evidence of basal inferior wall hypokinesis. 8. Aortic valve opens well. It is trileaflet. No evidence of stenosis or insufficiency. 9. Aorta appears normal in visualized segments. 10. No pericardial effusion seen. cc: MD Connie Russell CRNP
--- NOTE | 2018-10-22 15:43 | PROGRESS NOTE ---
DATE: 10/22/2018 SUBJECTIVE: Patient continues with some cough but denies shortness of breath or chest discomfort on supplemental oxygen per nasal cannula. She really has not had any chest discomfort. OBJECTIVE: Vital Signs: Blood pressure 122/86, heart rate 97, oxygen saturation 91 to 96 percent on nasal cannula oxygen at 4 L/minute. There is no significant jugular venous distention. Auscultation chest reveals some inspiratory crackles in the right mid lung field posteriorly. Cardiac: Regular rate and rhythm without appreciable murmur or gallop. Extremities: Are without edema. LABORATORY DATA: Includes a white blood cell count 13.11, hematocrit 32.0, hemoglobin 10.0, platelet count 215,000. Sodium 137, potassium 3.4, chloride 99, carbon dioxide 25, BUN 16, creatinine 0.7, glucose 341. Initial CPK 228 with followup CPK of 340, 227, and 156. Initial CPK/MB 35.7 with followup CPK/MB of 44.98 and 25.9. Initial troponin T 0.987 with followup troponin T of 1.59, 1.1, and 0.917. Echocardiography reports left ventricular ejection fraction of 55 to 60 percent with basal inferior wall hypokinesis. Moderate mitral regurgitation reported. There is also moderate tricuspid regurgitation with moderate pulmonary hypertension by Doppler. IMPRESSION: 1. Right-sided pneumonia with cough and leukocytosis. 2. Possible component of pulmonary edema. This appears to have resolved with limited diuresis. 3. Atherosclerotic coronary disease. She appears to have had a small non-ST elevation myocardial infarction likely as a secondary event related to the acuity of her illness with pneumonia. 4. Permanent atrial fibrillation. 5. Hypertension. 6. Type 2 diabetes mellitus. 7. Dementia. 8. Anxiety/depression. RECOMMENDATIONS: 1. Further diuresis does not appear to be warranted. 2. Continue medical management of patient's coronary atherosclerosis. 3. Conservative cardiovascular management overall. cc: Bautista Conway MD
[2018-10-22] MEDS: COZAAR PO SCH (17:36)
[2018-10-22] MEDS ORDERED: LOVENOX SUBQ SCH (21:00)
[2018-10-22] MEDS: LIPITOR PO SCH (21:20)
[2018-10-22] MEDS: VANCOMYCIN 1,500 MG in NS 250 ML IV SCH (21:21)
[2018-10-22] MEDS: COREG PO SCH (21:21)
[2018-10-22] MEDS: COLACE PO SCH (21:21)
[2018-10-23] MEDS: MAXIPIME 1 GM in NS 50 ML IV SCH ×2 (02:11→14:09)
[2018-10-23] MEDS: ATROVENT NEB INH SCH ×6 (03:28→23:05)
[2018-10-23] MEDS: XOPENEX NEB INH SCH ×6 (03:28→23:05)
[2018-10-23] MEDS: PRILOSEC PO SCH ×2 (05:43→06:19)
[2018-10-23 07:27] LABS: BASO# 0.01 X1000 (0.0-0.2); BASO% 0.1 % (0.0-0.8); HEMATOCRIT 30.7 % (37.0-47.0); HEMOGLOBIN 9.6 g/dL (12.0-16.0); IMM GRAN# 0.05 X1000 (0.0-0.04); IMM GRAN% 0.3 % (0.0-0.5); LYMPH% 4.7 % (20.5-51.1); MCH 27.6 PG (27-31); MCHC 31.3 g/dL (33-37); MCV 88.2 FL (81-99); MONO% 7.1 % (1.7-9.3); MPV 10.6 FL (7.4-10.4); NEUT# 14.91 X1000 (1.4-6.5); NEUT% 87.8 % (42.2-75.2); PLT 259 X1000 (130-400); RBC 3.48 XMIL (4.2-5.4); RDW 13.9 % (11.5-14.5); WBC 16.97 X1000 (4.8-10.8)
[2018-10-23 07:50] LABS: AGAP 9; BUN 27 mg/dL (8-22); CALCIUM 8.9 mg/dL (8.8-10.2); CHLORIDE 102 mmol/L (98-107); COSMO 287; CREATININE 0.8 mg/dL (0.5-0.9); ESTIMATED GFR > 60; GLUCOSE 276 mg/dL (70-104); POTASSIUM 4.5 mmol/L (3.5-5.1); SODIUM 136 mmol/L (136-145); TCO2 25 mmol/L (25-35)
[2018-10-23] MEDS: PULMICORT INH SCH ×2 (08:07→19:33)
[2018-10-23 08:21] LABS: BANDS 2 % (0-1); LYMPHS 2 % (21-51); MONO 6 % (1-9); SEGS 90 % (42-75)
[2018-10-23] MEDS: CYMBALTA PO SCH (08:36)
[2018-10-23] MEDS: COREG PO SCH ×2 (08:36→20:06)
[2018-10-23] MEDS: ZYRTEC PO SCH (08:36)
[2018-10-23] MEDS: FERROUS SULFATE PO SCH ×2 (08:36→16:04)
[2018-10-23] MEDS: THERA M PLUS PO SCH (08:36)
[2018-10-23] MEDS: SOLU-MEDROL IV SCH (08:36)
[2018-10-23] MEDS: BUSPAR PO SCH ×2 (08:37→20:06)
[2018-10-23] MEDS: COZAAR PO SCH (08:37)
[2018-10-23] MEDS: NEURONTIN PO SCH ×4 (08:37→20:06)
[2018-10-23] MEDS: FOLIC ACID PO SCH (08:37)
[2018-10-23] MEDS: ASPIRIN EC PO SCH (08:37)
[2018-10-23] MEDS: ICAR-C PO SCH (08:37)
--- NOTE | 2018-10-23 13:21 | PROGRESS NOTE ---
DATE: 10/23/2018 SUBJECTIVE: This morning Ms. Fernandes refers to be feeling a little better. According to her, her breathing is getting better. No new complaints. OBJECTIVE: Vital signs: Blood pressure 144/87, pulse 118, respirations 22, and temperature 98.4 degrees. General: Ms. Fernandes is a 73-year-old elderly female. She is in bed, and does not seem to be in any distress. HEENT: Mucosa is pink and moist. Anicteric. Acyanotic. Neck: Supple. There is a right EJ noted. Chest: Air entry is bilaterally reduced. There is mildly prolonged expiratory phase of respiration. There are also some crackles and end expiratory wheezing. Cardiovascular: Irregularly irregular but no murmurs. Abdomen: Soft and nontender. Extremities: No pedal edema. 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 LABORATORY DATA: WBC 16.97, hemoglobin 9.6, and platelet count of 259,000. Chemistry is also reviewed and is unremarkable. Troponin was elevated. The patient's urine culture is showing an E. Coli. The patient I's and O's, urine output is 1700. She is currently negative balance of 2990. Chest x-ray from yesterday has been reviewed. MEDICATIONS: The patient's current medications have also been reviewed. She is on cefepime and vancomycin as antimicrobials. ASSESSMENT: 1. Sepsis due to bilateral lower lobe pneumonia. 2. Acute hypoxemic respiratory failure. 3. Multifocal pneumonia more predominantly in the right upper lobe. 4. Pulmonary edema secondary to congestive heart failure. 5. History of COPD with mild exacerbation. 6. E. Coli urinary tract infection. 7. Atrial fibrillation with RVR, improved. We will continue with further recommendations from Pulmonary Medicine. Patient is on a beta myrna. 8. Troponin elevation likely due to demand ischemia with possible underlying coronary artery disease. The patient would eventually need to restratify once clinically stable. cc: Olegario Abernathy MD
--- NOTE | 2018-10-23 14:26 | EKG Report ---
Test Performed on : 10/23/2018 2:19:08 PM Test Reason : increased heart rate Blood Pressure : / mmHG Vent. Rate : 155 BPM Atrial Rate : 120 BPM P-R Int : 000 ms QRS Dur : 094 ms QT Int : 306 ms P-R-T Axes : 000 048 231 degrees QTc Int : 491 ms Atrial fibrillation. with rapid ventricular response. Possible Inferior infarct (cited on or before 30-AUG-2017) Marked ST abnormality, possible lateral subendocardial injury Abnormal ECG When compared with ECG of 22-OCT-2018 10:23, Vent. rate has increased BY 59 BPM Confirmed by Elissa Milton MD ([id number]) on 10/24/2018 12:25:09 PM
[2018-10-23] MEDS ORDERED: CARDIZEM IV ONE (15:23)
[2018-10-23] MEDS: CARDIZEM 125 MG/D5W 125 MG/125 ML IVPB IV SCH (15:52)
[2018-10-23] MEDS ORDERED: LOPRESSOR PO ONE (16:37)
[2018-10-23] MEDS ORDERED: LANOXIN IV ONE ×2 (16:42→20:00)
--- NOTE | 2018-10-23 18:03 | PROGRESS NOTE ---
DATE: 10/23/2018 SUBJECTIVE: The patient reports continuing to feel progressively better. She denies shortness of breath. There has been no chest pain. She developed rapid ventricular rate response to atrial fibrillation this afternoon, and intravenous diltiazem was initiated. OBJECTIVE: Blood pressure 136/89, heart rate 134 and irregular, oxygen saturation 94%. There is no significant jugular venous distention. Chest is clear to auscultation bilaterally. Cardiac exam reveals an irregular rate and rhythm without appreciable murmur or gallop. There is no evidence of peripheral edema. LABORATORY DATA: Includes a white blood cell count of 16.97, hematocrit 30.7, hemoglobin 9.6, platelet count 259,000. Sodium 136, potassium 4.5, chloride 102, carbon dioxide 25, BUN 27, creatinine 0.8, glucose 276. IMPRESSION: 1. Right-sided pneumonia. 2. Possible component of pulmonary edema. This appears to have resolved with limited diuresis. 3. Atherosclerotic coronary disease. The patient appears to have had a small non-ST elevation myocardial infarction, likely as a secondary event related to the acuity of her illness with pneumonia. 4. Permanent atrial fibrillation. Heart rate increased as a result of transition of cardiovascular medications. 5. Hypertension. 6. Type 2 diabetes mellitus. 7. Dementia. RECOMMENDATIONS: 1. Increase carvedilol. 2. Add digoxin. 3. Continue anticoagulation for thromboembolic risk protection with permanent atrial fibrillation. 4. Conservative cardiovascular management overall. cc: Bautista Conway MD
[2018-10-23] MEDS: LIPITOR PO SCH (20:06)
[2018-10-23] MEDS: ELIQUIS PO SCH (20:06)
[2018-10-23] MEDS: COLACE PO SCH (20:06)
[2018-10-23] MEDS ORDERED: LOPRESSOR PO SCH (21:00)
--- NOTE | 2018-10-24 00:16 | EKG Report ---
Test Performed on : 10/24/2018 00:04:34 AM Test Reason : rhythm change Blood Pressure : / mmHG Vent. Rate : 079 BPM Atrial Rate : 078 BPM P-R Int : 000 ms QRS Dur : 100 ms QT Int : 356 ms P-R-T Axes : 000 024 202 degrees QTc Int : 408 ms junctiona Possible Inferior infarct (cited on or before 30-AUG-2017) Marked ST abnormality, possible lateral subendocardial injury Abnormal ECG When compared with ECG of 23-OCT-2018 14:19, (Unconfirmed) Current undetermined rhythm precludes rhythm comparison, needs review Confirmed by Yoan MORENO, MAlejandra Tompkins ([id number]) on 10/24/2018 12:25:35 PM
[2018-10-24] MEDS: MAXIPIME 1 GM in NS 50 ML IV SCH ×2 (01:48→17:16)
[2018-10-24] MEDS: CARDIZEM 125 MG/D5W 125 MG/125 ML IVPB IV SCH (02:48)
[2018-10-24] MEDS: VANCOMYCIN 1,500 MG in NS 250 ML IV SCH (03:22)
[2018-10-24] MEDS: ATROVENT NEB INH SCH ×6 (03:30→23:18)
[2018-10-24] MEDS: XOPENEX NEB INH SCH ×6 (03:30→23:18)
[2018-10-24] MEDS: PRILOSEC PO SCH (06:05)
[2018-10-24 06:52] LABS: BASO# 0.02 X1000 (0.0-0.2); BASO% 0.1 % (0.0-0.8); EOS# 0.01 X1000 (0.0-0.7); EOS% 0.1 % (0.0-10.0); HEMOGLOBIN 10.6 g/dL (12.0-16.0); IMM GRAN# 0.21 X1000 (0.0-0.04); IMM GRAN% 1.4 % (0.0-0.5); LYMPH# 1.33 X1000 (1.2-3.4); LYMPH% 8.6 % (20.5-51.1); MCH 27.2 PG (27-31); MCHC 31.2 g/dL (33-37); MCV 87.4 FL (81-99); MONO# 0.97 X1000 (0.11-0.59); MONO% 6.3 % (1.7-9.3); MPV 10.4 FL (7.4-10.4); NEUT# 12.91 X1000 (1.4-6.5); NEUT% 83.5 % (42.2-75.2); PLT 280 X1000 (130-400); RBC 3.89 XMIL (4.2-5.4); RDW 13.5 % (11.5-14.5); WBC 15.45 X1000 (4.8-10.8)
[2018-10-24 07:00] LABS: AGAP 10; ALBUMIN 3.5 g/dL (3.5-5.0); BUN 26 mg/dL (8-22); CALCIUM 9.5 mg/dL (8.8-10.2); CHLORIDE 102 mmol/L (98-107); COSMO 292; CREATININE 0.7 mg/dL (0.5-0.9); ESTIMATED GFR > 60; GLUCOSE 270 mg/dL (70-104); PHOSPHORUS 2.6 mg/dL (2.7-4.5); POTASSIUM 4.7 mmol/L (3.5-5.1); SODIUM 139 mmol/L (136-145); TCO2 27 mmol/L (25-35)
--- NOTE | 2018-10-24 07:28 | EKG Report ---
Test Performed on : 10/24/2018 06:51:08 AM Test Reason : afib, dyspnea Blood Pressure : / mmHG Vent. Rate : 087 BPM Atrial Rate : 375 BPM P-R Int : 000 ms QRS Dur : 100 ms QT Int : 370 ms P-R-T Axes : 000 052 244 degrees QTc Int : 445 ms Atrial fibrillation. Incomplete right bundle branch block Cannot rule out Inferior infarct (cited on or before 30-AUG-2017) ST & T wave abnormality, consider anterolateral ischemia Abnormal ECG When compared with ECG of 24-OCT-2018 00:04, (Unconfirmed) Previous ECG has undetermined rhythm, needs review Confirmed by Yoan MORENO, MAlejandra Tompkins ([id number]) on 10/24/2018 12:25:50 PM
[2018-10-24] MEDS: PULMICORT INH SCH ×2 (08:28→19:31)
--- NOTE | 2018-10-24 09:22 | Diag Imaging Result Doc PS360 ---
CHEST-2 VIEWS - 10/24/2018 INDICATION: hypoxia COMPARISON: 10/22/2018 FINDINGS: There has been some decrease in the density of the infiltrate in the right upper lobe. There is hazy infiltrate in the right lower lobe as well similar to prior. No pneumothorax or pleural effusion. There is mild cardiomegaly. IMPRESSION: Slight decrease in the density of the right upper lobe infiltrate/pneumonia. Electronically signed by Cuhck Dawson 10/24/2018 9:19 AM
[2018-10-24] MEDS: SOLU-MEDROL IV SCH (09:46)
[2018-10-24] MEDS: NEURONTIN PO SCH ×5 (09:46→22:52)
[2018-10-24] MEDS: COZAAR PO SCH (09:47)
[2018-10-24] MEDS: ICAR-C PO SCH (09:47)
[2018-10-24] MEDS: COREG PO SCH ×3 (09:47→22:51)
[2018-10-24] MEDS: BUSPAR PO SCH ×3 (09:47→22:51)
[2018-10-24] MEDS: FOLIC ACID PO SCH (09:47)
[2018-10-24] MEDS: FERROUS SULFATE PO SCH ×2 (09:47→17:15)
[2018-10-24] MEDS: ZYRTEC PO SCH (09:48)
[2018-10-24] MEDS: ASPIRIN EC PO SCH (09:48)
[2018-10-24] MEDS: CYMBALTA PO SCH (09:48)
[2018-10-24] MEDS: ELIQUIS PO SCH ×3 (09:48→22:51)
[2018-10-24] MEDS: THERA M PLUS PO SCH (09:48)
[2018-10-24] MEDS: LANOXIN PO SCH (09:49)
--- NOTE | 2018-10-24 12:08 | PROGRESS NOTE ---
DATE: 10/24/2018 SUBJECTIVE: This morning, Ms. Fernandes referred to be doing a lot better. No chest pain. Shortness of breath has improved. OBJECTIVE: Vital signs: Her vitals, blood pressure is 170/106, pulse of 70, respiration is 15, temperature is 97.5. The patient is saturating 97% on 4 L. General: On general exam, Ms. Fernandes is a 73-year-old elderly female. She was in bed, no distress. HEENT: Mucosa is pink and moist. Anicteric. Acyanotic. Neck: Supple. Chest: Good air entry bilaterally. There is still some inspiratory crackles posteriorly. Cardiovascular: Irregularly irregular but no murmurs. Abdomen: Soft, nontender. Extremities: No pedal edema. 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 The patient's I's and O's: Urine output 1200. She is currently negative balance of 3685 during the hospital course. Her lab includes WBC is 15.45, hemoglobin is 10.6, platelet count of 280. Chemistry is also reviewed. Troponin is trending down 0.0562. Imaging study this morning. A chest x-ray that shows slight decrease in the density of the right upper lobe. ASSESSMENT: 1. Sepsis on presentation secondary to multifocal pneumonia. 2. Acute hypoxemic respiratory failure improved. 3. Multifocal pneumonia predominantly in the right upper lobe. Subsequent chest x-ray is doing better. The patient is currently on cefepime and vancomycin, today is day 3 on antimicrobial therapy. 4. Pulmonary edema on presentation secondary to congestive heart failure exacerbation improved on diuretics. 5. Chronic obstructive pulmonary disease exacerbation improved. 6. Escherichia coli urinary tract infection sensitive to the current antimicrobial therapy. 7. Atrial fibrillation with rapid ventricular response on presentation improved. 8. Troponin elevation secondary to non-ST elevation myocardial infarction presumably from demand mismatch however an underlying ischemic cardiomyopathy cannot be completely ruled out. Cardiology has evaluated the patient and they plan to treat this medically. cc: Olegario Abernathy MD
--- NOTE | 2018-10-24 13:44 | CARDIOLOGY PROGRESS NOTE ---
DATE: 10/24/2018 SUBJECTIVE: Patient continues without shortness of breath and is presently on room air. There has been no chest pain. She continues in atrial fibrillation with controlled rate. OBJECTIVE: Vital Signs: Blood pressure 170/106, heart rate 87 and irregular with ECG monitor showing atrial fibrillation. Neck: There is no significant jugular venous distention. Chest: Clear to auscultation with exception of a few rhonchi. Cardiac: Exam reveals an irregular rate and rhythm without appreciable murmur, rub, or gallop. There is no evidence of peripheral edema. LABORATORY DATA: Includes a white blood cell count of 15.45, hematocrit 34 hemoglobin 10.6, platelet count 280,000. Sodium 139, potassium 4.7, chloride 102, hematocrit 27, BUN 26, creatinine 0.7. IMPRESSION: 1. Pneumonia. 2. Possible component of pulmonary edema which appears to have resolved after limited diuresis. 3. Atherosclerotic coronary artery disease. Patient appears to have had a small [id number]-[id number] myocardial infarction, likely a secondary event related to the acuity of her illness with pneumonia. 4. Permanent atrial fibrillation. Rate controlled. 5. Hypertension. Blood pressure elevated. 6. Type 2 diabetes mellitus. 7. Dementia. RECOMMENDATIONS: 1. Increase carvedilol. 2. Continue anticoagulation for thromboembolic risk protection, given permanent atrial fibrillation. 3. Conservative cardiovascular management overall. cc: Bautista Conway MD
[2018-10-24] MEDS: COLACE PO SCH ×2 (19:44→22:51)
[2018-10-24] MEDS: LIPITOR PO SCH ×2 (19:44→22:52)
[2018-10-25] MEDS: ATROVENT NEB INH SCH ×6 (03:14→23:00)
[2018-10-25] MEDS: XOPENEX NEB INH SCH ×6 (03:14→23:00)
[2018-10-25] MEDS: PRILOSEC PO SCH ×2 (05:48→06:11)
[2018-10-25] MEDS: MAXIPIME 1 GM in NS 50 ML IV SCH ×2 (05:48→17:16)
[2018-10-25] MEDS: ASPIRIN EC PO SCH (08:06)
[2018-10-25] MEDS: ZYRTEC PO SCH (08:07)
[2018-10-25] MEDS: ICAR-C PO SCH (08:07)
[2018-10-25] MEDS: CYMBALTA PO SCH (08:07)
[2018-10-25] MEDS: THERA M PLUS PO SCH (08:07)
[2018-10-25] MEDS: BUSPAR PO SCH ×2 (08:07→20:31)
[2018-10-25] MEDS: FERROUS SULFATE PO SCH ×2 (08:07→17:16)
[2018-10-25] MEDS: FOLIC ACID PO SCH (08:07)
[2018-10-25] MEDS: ELIQUIS PO SCH ×2 (08:07→20:31)
[2018-10-25] MEDS: NEURONTIN PO SCH ×4 (08:07→20:31)
[2018-10-25] MEDS: COZAAR PO SCH (08:07)
[2018-10-25] MEDS: COREG PO SCH ×2 (08:08→20:31)
[2018-10-25] MEDS: SOLU-MEDROL IV SCH (08:08)
[2018-10-25] MEDS: LANOXIN PO SCH (08:08)
[2018-10-25] MEDS: PULMICORT INH SCH ×2 (08:27→19:00)
[2018-10-25] MEDS: VANCOMYCIN 1,600 MG in NS 250 ML IV SCH (09:16)
--- NOTE | 2018-10-25 12:38 | PROGRESS NOTE ---
DATE: 10/25/2018 SUBJECTIVE: This morning Ms. Fernandes refers to be doing a lot better. Shortness of breath is improving. OBJECTIVE: Vital Signs: Blood pressure 149/104, pulse of 88, respirations, and temperature is 98.3 degrees. Patient is saturating 97% on 3 L. General: Ms. Fernandes is a 73-year-old elderly female. She is in bed in no distress. Mucosa is pink and moist. Anicteric. Acyanotic. Neck: Supple. Chest: Good air entry bilaterally. Few crackles in the posterior lung muhammad. Cardiovascular: Irregularly irregular, but rate controlled. No murmurs. No rubs. No gallops. Abdomen: Soft, distended, but nontender. Bowel sounds present. Extremities: No pedal edema. 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 Follows basic commands. LABORATORY DATA: None for this morning, and no Imaging Studies for this morning. CURRENT MEDICATIONS: All have been reviewed. ASSESSMENT: 1. Sepsis on presentation secondary to multifocal pneumonia improved. 2. Acute hypoxemic respiratory failure on presentation resolved. 3. Multifocal pneumonia predominantly in the right upper lobe. The patient is currently on cefepime and vancomycin. Today is day 4. We will repeat a chest x-ray tomorrow morning. 4. Pulmonary edema on presentation secondary to congestive heart failure improved. 5. COPD exacerbation improved. 6. E. coli UTI. 7. Atrial fibrillation with RVR on presentation improved. 8. Non STEMI, presumably due to demand ischemia. Cardiology is on board. PLAN: So, in general, I think Ms. Fernandes is doing a lot better. We will do a chest x-ray in the morning to follow up on the lung findings. Cardiology has evaluated the patient in terms of the non STEMI. These recommendations are to treat it medically, and there is no plan for any further intervention. We plan hopefully to discharge Ms. Fernandes tomorrow to [facility]. cc: Olegario Abernathy MD
[2018-10-25] MEDS ORDERED: COZAAR PO ONE (15:23)
[2018-10-25] MEDS: COLACE PO SCH (20:31)
[2018-10-25] MEDS: LIPITOR PO SCH (20:31)
[2018-10-26] MEDS: XOPENEX NEB INH SCH ×3 (03:09→11:07)
[2018-10-26] MEDS: ATROVENT NEB INH SCH ×3 (03:09→11:07)
[2018-10-26] MEDS: PRILOSEC PO SCH (06:00)
[2018-10-26] MEDS: MAXIPIME 1 GM in NS 50 ML IV SCH (06:00)
[2018-10-26] MEDS: PULMICORT INH SCH (07:41)
[2018-10-26] MEDS ORDERED: COZAAR PO SCH (09:00)
[2018-10-26] MEDS: COREG PO SCH (09:15)
[2018-10-26] MEDS: NEURONTIN PO SCH ×2 (09:15→13:32)
[2018-10-26] MEDS: CYMBALTA PO SCH (09:15)
[2018-10-26] MEDS: ZYRTEC PO SCH (09:15)
[2018-10-26] MEDS: FOLIC ACID PO SCH (09:15)
[2018-10-26] MEDS: ICAR-C PO SCH (09:15)
[2018-10-26] MEDS: FERROUS SULFATE PO SCH (09:16)
[2018-10-26] MEDS: ASPIRIN EC PO SCH (09:16)
[2018-10-26] MEDS: BUSPAR PO SCH (09:16)
[2018-10-26] MEDS: LANOXIN PO SCH (09:16)
[2018-10-26] MEDS: ELIQUIS PO SCH (09:16)
[2018-10-26] MEDS: THERA M PLUS PO SCH (09:17)
[2018-10-26] MEDS: VANCOMYCIN 1,600 MG in NS 250 ML IV SCH (09:17)
[2018-10-26] MEDS: SOLU-MEDROL IV SCH (09:17)
[2018-10-26 11:36] VITALS: BP 166/122
--- NOTE | 2018-10-26 12:16 | DISCHARGE SUMMARY ---
ADMISSION DATE: 10/21/2018 DISCHARGE DATE: 10/26/2018 DISPOSITION: [facility] FOLLOWUP: 1. Dr. Franc Baltazar. 2. Dr. Cownay. INVASIVE PROCEDURES DONE DURING THIS ADMISSION: None. IMAGING STUDIES OF SIGNIFICANCE: 1. A chest x-ray was done initially which showed right upper lobe infiltrates, cardiomegaly and pulmonary venous congestion. 2. A subsequent chest x-ray shows grossly stable. 3. The last x-ray which was done 3 days ago shows slight decrease in the density of the right upper lobe infiltrates. ADMISSION DIAGNOSES: 1. Sepsis secondary to right upper lobe pneumonia. 2. Elevated troponin. 3. Chronic chronic obstructive pulmonary disease. 4. Acute on chronic congestive heart failure. 5. Right upper lobe pneumonia. DISCHARGE DIAGNOSES: 1. Sepsis on presentation secondary to multifocal pneumonia. 2. Acute hypoxemic respiratory failure on presentation due to a combination of pneumonia and pulmonary edema. 3. Multifocal pneumonia predominantly in the right upper lobe. 4. Pulmonary edema on presentation secondary to congestive heart failure. 5. Chronic obstructive pulmonary disease exacerbation. 6. Escherichia coli urinary tract infection. 7. Atrial fibrillation with rapid ventricular response on presentation, currently rate controlled. 8. Qyu-RR-yzabyzikp myocardial infarction, presumably due to demand ischemia. The patient was evaluated by Cardiology. DISCHARGE MEDICATIONS: 1. Aspirin 81 mg p.o. daily. 2. Buspirone 50 mg b.i.d. 3. Tizanidine 4 mg 3 times per day. 4. Hydralazine 25 mg 3 times per day. 5. Eliquis 5 mg b.i.d. 6. Omeprazole 40 mg p.o. daily. 7. Oxycodone 5 mg p.o. q.6 p.r.n. 8. Diltiazem 240 p.o. daily. 9. Iron. 10.Colace 200 mg p.o. nightly at bedtime. 11.Furosemide 40 mg p.o. daily. 12.Cyanocobalamin. 13.Multivitamin 1 tablet daily. 14.Oxycodone 5 mg p.o. nightly at bedtime. 15.Duloxetine. 16.Atorvastatin 40 mg p.o. nightly at bedtime 17.Carvedilol 25 mg p.o. b.i.d. 18.Losartan 50 mg p.o. daily. 19.Doxycycline 100 mg b.i.d. 20.Digoxin 125 mcg p.o. daily. 21.Levofloxacin 500 p.o. daily for 7 days. 22.Prednisone 20 mg p.o. daily. 23.Gabapentin 300 b.i.d. PRESENTING COMPLAINT: Shortness of breath and choking. HISTORY OF PRESENTING COMPLAINT: Ms. Fernandes is a 73-year-old female with multiple comorbidities including brain cancer, status post craniotomy and brain tumor resection, coronary artery disease status post stent placement, chronic atrial fibrillation on Eliquis, diabetes mellitus, dyslipidemia. The patient presented to the emergency department because of shortness of breath which has been going on for about a week to 2 weeks. Upon presentation, she was evaluated, and initial chest x-ray did reveal right upper quadrant lobe infiltrate, cardiomegaly, also with pulmonary vascular congestion. The patient was also found in atrial fibrillation with RVR. She was subsequently admitted for further medical care. HOSPITAL COURSE: Ms. Fernandes was admitted to [facility] and was initially started on broad spectrum antimicrobial therapy, steroids and nebulization therapy. She was also started on IV Cardizem for a better rate control. Throughout the hospital course, she did improve. Her troponins were found to be elevated. It was thought to be secondary to demand mismatch from the pneumonia and stress with underlying coronary artery disease. She was evaluated by Cardiology, and recommendation was to treat this medically. Today, Ms. Fernandes refers to feel a whole lot better. Shortness of breath has significantly improved. A repeat chest x-ray which was done on 10/24/2018 shows some improvement in her pneumonia. Her currently laboratory data from 10/24/2018 showed the white cell count going down. She is hemodynamically stable. She has been afebrile throughout the hospital course. Her current pulse rate is about 79. She is still in atrial fibrillation but rate controlled. Blood pressure is also a lot better. Her physical exam is fairly unremarkable. She still has some mild crackles in the posterior lung muhammad, but for the most part, she looks a lot more stable. We think Ms. Fernandes is now ready for discharge. She is going to go to a rehab center to continue with her p.o. antibiotics and also with physical anabaptism. Other discharge instructions have been discussed with her, and she voiced understanding. We will discontinue the Meneses catheter before Ms. Fernandes goes for the rehab. Time spent for discharge is 37 minutes. cc: MD Franc Louis MD William D. Denney, MD MTDD
== END 2018-10-26 13:46 | DRG 871 ==
LOC: SUPCPDRO → ED 11:00 → 2N 13:42 → SUATTDRO 13:42
PROVIDERS: ATTEND Internal Medicine

== ENCOUNTER 2019-04-20 16:22 | Inpatient (IN) ==
[2019-04-20] MEDS ORDERED: BOOSTRIX VACCINE IM ONE (17:11)
[2019-04-20] MEDS ORDERED: ZOFRAN IV ONE (17:11)
[2019-04-20] MEDS ORDERED: MORPHINE IV ONE (17:11)
--- NOTE | 2019-04-20 17:36 | Diag Imaging Result Doc PS360 ---
EXAM: CHEST-PORTABLE HISTORY: fall TECHNIQUE: Single view COMPARISON: 10/24/2018 FINDINGS: The lungs are well expanded. No contusion. No pneumothorax. The heart is mildly prominent. The vessels are not distended. There are no infiltrates. No effusion identified. IMPRESSION: No injury Electronically signed by Cholo Choudhary 04/20/2019 5:34 PM
--- NOTE | 2019-04-20 17:45 | Diag Imaging Result Doc PS360 ---
EXAM : CT HEAD/C-SPINE W/O CONTRAST HISTORY: head injury/pain TECHNIQUE: 1. CT head without intravenous contrast 2. CT cervical spine without intravenous contrast COMPARISON: Head compared to 12/24/2017 FINDINGS: Head: No parenchymal hemorrhage. No epidural or subdural hematoma. No subarachnoid hemorrhage. No mass identified on this noncontrasted exam. No hydrocephalus. No skull fracture. Right posterior craniotomy. Ventriculoperitoneal shunt. Cervical spine: There is good alignment to the cervical spine. No precervical soft tissue swelling. No subluxation. No fracture. 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 This is congenital or postsurgical. IMPRESSION: Head: No hemorrhage. No injury. Cervical spine: No acute fracture. This exam was performed using automated exposure control, adjustment of mA or kV according to patient size, and/or use of iterative reconstruction technique. Electronically signed by Cholo Choudhary 04/20/2019 5:42 PM
--- NOTE | 2019-04-20 17:49 | Diag Imaging Result Doc PS360 ---
EXAM: CT MAXILLOFACIAL(SINUS) W/O CO HISTORY: fall, facial injury TECHNIQUE: CT face without contrast COMPARISON: None. FINDINGS: No sinus opacification. No air-fluid levels. 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 No fracture. Left preorbital soft tissue swelling. IMPRESSION: No acute bony injury. Electronically signed by Cholo Choudhary 04/20/2019 5:46 PM
--- NOTE | 2019-04-20 18:21 | PROVIDER DOCUMENTATION ---
This chart was entered by Isabell Forbes Scribe, acting as scribe for Festus Etienne MD. HPI-Head Injury - General Source: patient, EMS ([facility]) - History of Present Illness-Head Injury Head Injury Location: reports: frontal Other injuries associated with incident:: reports: head Quality of Pain: reports: pressure Severity: reports: moderate Onset/Duration: reports: just prior to arrival Timing: reports: still present Method of Injury: reports: fell Any recent trauma/injury?: reports: none Loss of Consciousness: no loss of consciousness Modifying Factors: worse with: palpation Injury Associated Symptoms: reports: denies symptoms Locality of Occurance: Other (snf) Similar Symptoms Previously?: No Recently seen or treated by another doctor?: No <Festus Etienne - Last Filed: 04/20/19 18:15> <Kathryn Ellis - Last Filed: 04/20/19 23:01> - General Stated Complaint: FALL Time Seen by Provider: 04/20/19 17:08 Allergies/Adverse Reactions: Patient Allergies Allergy/AdvReac Type Severity Reaction Status Date / Time Penicillins Allergy Unknown Verified 10/21/18 13:20 Sulfa (Sulfonamide Allergy Unknown Verified 10/21/18 13:20 Antibiotics) Home Medications: Home Medication List Medication Instructions Recorded Confirmed Last Taken Type Aspirin [Aspirin EC] 81 mg PO DAILY #90 tablet. 01/11/15 10/21/18 10/21/18 Rx Buspirone [Buspar] 15 mg PO BID 08/30/17 10/21/18 10/21/18 History Hydralazine [Apresoline] 25 mg PO TID 08/30/17 10/21/18 10/21/18 History Tizanidine HCl 4 mg PO TID 08/30/17 10/21/18 10/21/18 History Apixaban [Eliquis] 5 mg PO BID 10/20/17 10/21/18 10/21/18 History Omeprazole 40 mg PO DAILY 10/20/17 10/21/18 10/21/18 History Diltiazem HCl [Cardizem Cd] 240 mg PO DAILY #60 cap.er.24h 01/01/18 10/21/18 10/21/18 Rx Docusate Sodium [Colace] 200 mg PO QHS capsule 10/29/18 08/18/19 08/17/19 Rx Folic Acid 1 mg PO DAILY tablet 01/01/18 10/21/18 10/21/18 Rx Furosemide [Lasix] 40 mg PO DAILY #0 01/01/18 10/21/18 10/21/18 Rx Iron Carbonyl/Ascorbic Acid 1 each PO DAILY tablet 01/01/18 10/21/18 10/21/18 Rx [Icar-C] Magnesium Hydroxide [Milk of 30 ml PO DAILY PRN PRN udc 01/01/18 Unknown Rx Magnesia] Oxycodone I.r. [Oxy Ir] 5 mg PO Q3H PRN PRN #40 tab 01/01/18 10/21/18 Unknown Rx Acetaminophen 2 tab PO PRN PRN 10/21/18 10/21/18 10/21/18 History Cetirizine [Zyrtec] 1 tab PO DAILY 10/21/18 10/21/18 10/21/18 History Cyanocobalamin (Vitamin B-12) 1 tab PO DAILY 10/21/18 10/21/18 10/21/18 History [Cyanocobalamin] Duloxetine [Cymbalta] 2 tab PO DAILY 10/21/18 10/21/18 10/21/18 History Ferrous Sulfate [Albafort] 1 tab PO BID 10/21/18 10/21/18 10/21/18 History Multivitamin with Folic Acid 1 tab PO DAILY 10/21/18 10/21/18 10/21/18 History [Thera Tablet] Oxycodone HCl 1 tab PO QHS 10/21/18 10/21/18 10/20/18 History Tramadol HCl 0.5 tab PO TID 10/21/18 10/21/18 10/21/18 History ATORVAstatin [Lipitor] 40 mg PO QHS tab 10/26/18 Unknown Rx Carvedilol [Coreg] 25 mg PO Q12HR tab 10/26/18 Unknown Rx Digoxin [Lanoxin] 125 microgm PO DAILY tab 10/26/18 Unknown Rx Gabapentin 1 tab PO BID #0 10/26/18 10/21/18 10/21/18 Rx Losartan [Cozaar] 50 mg PO DAILY tab 10/26/18 Unknown Rx - History of Present Illness-Head Injury Nature of Presenting Problem: 73 yowf presents to the ed via ems post fall from snf . pt sts "I just fell" pt denies loc and denies any pain. pt soes have ecchymosis and swelling noted to left orbital area and has a bandage in place on LUE. pt is pleasant on exam and in no obvious distress (Festus Etienne) Review of Systems - Adult - REVIEW OF SYSTEMS - ADULT Constitutional: denies: chills, fever Eyes: reports: see HPI, decreased vision (left eye) Ears, Nose, Mouth & Throat: reports: no symptoms reported Cardiovascular: denies: chest pain, palpitations Respiratory: denies: cough, shortness of breath, wheezing Gastrointestinal: reports: no symptoms reported Genitourinary: reports: no symptoms reported Musculoskeletal: denies: back pain, neck pain Integumentary: reports: see HPI, other (ecchymosis around orbitial area and LUE) Neurological: reports: no symptoms reported Psychiatric: reports: no symptoms reported Endocrine: reports: no symptoms reported Hematologic/Lymphatic: reports: no symptoms reported Allergic/Immunologic: reports: no symptoms reported All Other Systems: Reviewed and Negative <Festus Etienne - Last Filed: 04/20/19 18:15> Past History - Adult - PAST MEDICAL HISTORY-ADULT Review of Records: reports: Old Records Reviewed, Nursing Assessment Review, Medications Reviewed, Social history reviewed & non-contributory. Major Childhood Illnesses: reports: denies history Cardiovascular: reports: A-Fib, CAD, CHF, HTN, hyperlipidemia Respiratory: reports: asthma, COPD Gastrointestinal: reports: denies history Obstetrical/Gynecological: reports: denies history Genitourinary: reports: denies history Musculoskeletal: reports: denies history Neurological: reports: cancer/tumor Psychiatric: reports: anxiety, depression Endocrine/Immune: reports: Diabetes Diabetes Type: Type 2 Other Conditions: reports: cataract/glaucoma - PRIOR SURGERIES/PROCEDURES Surgical/Procedure History: reports: hysterectomy - IMMUNIZATION STATUS Childhood Immunizations: See Nurse Assessment Flu Vaccine: See Nurse Assessment - FAMILY HISTORY Family History: reviewed, not pertinent - SOCIAL HISTORY Smoking: denies Substance Use: denies Alcohol Use Frequency: never Living Situation: care facility <Festus Etienne - Last Filed: 04/20/19 18:15> Physical Exam- Neurological - Physical Exam-Neuro Initial Vital Signs Reviewed: Yes General Appearance: appears well, alert, no apparent distress Eye Exam: right eye: PERRL, left eye: abnormal pupil (cataract with soft tissue around eye with ecchymosis, swelling, pupil 7mm, fixed), periorbital ecchymosis, vision changes (light/dark vision only os) HENMT: moist mucous membranes Head Injury: ecchymosis (same), swelling (same), tenderness (soft tissue around left eye) Neck: non-tender, full range of motion, normal inspection Respiratory: chest non-tender, lungs clear, normal breath sounds Cardiovascular: irregularly irregular Abdominal Exam: normal bowel sounds, non tender, soft Lymphatic: no adenopathy Extremity: normal range of motion, normal inspection, other (has hematoma noted to LUE and wrapped with shaila bandage on exam) 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 Awaiting labs. States feels better. Changes to left eye do not appear to be acute trauma related.) - XRAY 1 XRAY Study: Chest Impression: Normal - CT/MRI 1 CT Study: Head (and C/Spine) Impression: Normal, See EMR Report ( Signed EXAM : CT HEAD/C-SPINE W/O C ONTRAST HISTORY: head injury/pain TECHNIQUE: 1. CT head without intravenous contrast 2. CT cervical spine without intravenous contrast COMPARISON: Head compared to 12/24/2017 FINDINGS: Head: No parenchymal hemorrhage. No epidural or subdural hematoma. No subarachnoid hemorrhage. No mass identified on this noncontrasted exam. No hydrocephalus. No skull fracture. Right posterior craniotomy. Ventriculoperitoneal shunt. Cervical spine: There is good alignment to the cervical spine. No precervical soft tissue swelling. No subluxation. No fracture. 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 This is congenital or postsurgical. IMPRESSION: Head: No hemorrhage. No injury. Cervical spine: No acute fracture. This exam was performed using automated exposure control, adjustment of mA or kV according to patient size, and/or use of iterative reconstruction technique. Electronically signed by Cholo Choudhary 04/20/2019 5:42 PM 04/20/19 1742 Interpreting Physician: Cholo Choudhary MD Dictated Date/Time: 04/20/19 1739 cc: Festus Etienne MD; Franc Baltazar MD) 2 CT Study: Facial Bones, Kidneys Impression: Abnormal, See EMR Report ( EXAM: CT MAXILLOFACIAL(SINUS) W/O CO HISTORY: fall, facial injury TECHNIQUE: CT face without contrast COMPARISON: None. FINDINGS: No sinus opacification. No air-fluid levels. 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 No fracture. Left preorbital soft tissue swelling. IMPRESSION: No acute bony injury. Electronically signed by Cholo Choudhary 04/20/2019 5:46 PM 04/20/19 1746 Interpreting Physician: Cholo Choudhary MD Dictated Date/Time: 04/20/19 174 cc: Festus Etienne MD; Franc Baltazar MD) - CHANGE OF SHIFT REPORT (ED Provider) 1 Report Given and Care Transferred to:: Dr. Ellis Time of Transfer: 19:00 Items Pending: Labs <Festus Eitenne - Last Filed: 04/20/19 18:15> - PLAN OF CARE/RESULTS Result Diagrams: 04/20/19 19:30 04/20/19 19:30 <Kathryn Ellis - Last Filed: 04/20/19 23:01> - PLAN OF CARE/RESULTS Progress/Plan/Lab Results: Vital Signs - 8 hr 04/20/19 16:29 04/20/19 18:06 04/20/19 19:00 Temperature 98.9 F 98.2 F Pulse Rate 65 67 59 L Respiratory Rate 18 14 21 Blood Pressure 103/63 128/79 139/93 O2 Sat by Pulse Oximetry 97 100 97 04/20/19 20:07 Temperature Pulse Rate 78 Respiratory Rate 17 Blood Pressure 137/83 O2 Sat by Pulse Oximetry 95 Laboratory Results - last 24 hr 04/20/19 04/20/19 04/20/19 19:30 19:30 19:30 WBC 11.57 H RBC 4.93 Hgb 13.5 Hct 41.9 MCV 85.0 MCH 27.4 MCHC 32.2 L RDW Std Deviation 15.6 H Plt Count 231 MPV 10.5 H Neut % (Auto) 76.3 H Lymph % (Auto) 13.1 L Hendry % (Auto) 8.8 Eos % (Auto) 1.5 Baso % (Auto) 0.3 Neut # (Auto) 8.83 H Lymph # (Auto) 1.51 Hendry # (Auto) 1.02 H Eos # (Auto) 0.17 Baso # (Auto) 0.04 PT INR PTT (Actin FS) Sodium Potassium Chloride Carbon Dioxide Anion Gap BUN Creatinine Estimated GFR/1.73 m2 BUN/Creatinine Ratio Glucose Calculated Osmolality Calcium Total Bilirubin AST ALT Alkaline Phosphatase Troponin T High Sens Lub-Z-Oplmxcuuvyl Pept 2650 H Total Protein Albumin Globulin Albumin/Globulin Ratio Urine Source Urine Color Urine Turbidity Urine pH Ur Specific Sutherland Urine Protein Ur Glucose (Stick) Ur Ketones (Stick) Urine Blood Urine Nitrite Urine Bilirubin Urobilinogen Dipstick Urine Leukocytes Urine WBC (Auto) Urine RBC (Auto) U Epithel Cells (Auto) Urine Bacteria (Auto) Digoxin 0.9 Blood Type Antibody Screen 04/20/19 04/20/19 04/20/19 19:30 19:30 19:30 WBC RBC Hgb Hct MCV MCH MCHC RDW Std Deviation Plt Count MPV Neut % (Auto) Lymph % (Auto) Hendry % (Auto) Eos % (Auto) Baso % (Auto) Neut # (Auto) Lymph # (Auto) Hendry # (Auto) Eos # (Auto) Baso # (Auto) PT 14.6 INR 1.12 PTT (Actin FS) 26.1 Sodium 135 L Potassium 3.7 Chloride 96 L Carbon Dioxide 25 Anion Gap 14 BUN 21 Creatinine 1.1 H Estimated GFR/1.73 m2 48 BUN/Creatinine Ratio 19 Glucose 289 H Calculated Osmolality 284 Calcium 9.5 Total Bilirubin 0.36 AST 14 ALT 11 Alkaline Phosphatase 122 H Troponin T High Sens Eva-H-Bqkggcnvlwt Pept Total Protein 6.8 Albumin 3.8 Globulin 3.0 Albumin/Globulin Ratio 1.3 Urine Source Urine Color Urine Turbidity Urine pH Ur Specific Suther[place] Urine Protein Ur Glucose (Stick) Ur Ketones (Stick) Urine Blood Urine Nitrite Urine Bilirubin Urobilinogen Dipstick Urine Leukocytes Urine WBC (Auto) Urine RBC (Auto) U Epithel Cells (Auto) Urine Bacteria (Auto) Digoxin Blood Type O POSITIVE Antibody Screen NEGATIVE 04/20/19 04/20/19 19:30 21:36 WBC RBC Hgb Hct MCV MCH MCHC RDW Std Deviation Plt Count MPV Neut % (Auto) Lymph % (Auto) Hendry % (Auto) Eos % (Auto) Baso % (Auto) Neut # (Auto) Lymph # (Auto) Hendry # (Auto) Eos # (Auto) Baso # (Auto) PT INR PTT (Actin FS) Sodium Potassium Chloride Carbon Dioxide Anion Gap BUN Creatinine Estimated GFR/1.73 m2 BUN/Creatinine Ratio Glucose Calculated Osmolality Calcium Total Bilirubin AST ALT Alkaline Phosphatase Troponin T High Sens 34 H Nbn-E-Ttauxqxvria Pept Total Protein Albumin Globulin Albumin/Globulin Ratio Urine Source CATH Urine Color YELLOW Urine Turbidity HAZY Urine pH 5.5 Ur Specific Sutherland 1.018 Urine Protein 50 A Ur Glucose (Stick) 150 A Ur Ketones (Stick) NEGATIVE Urine Blood NEGATIVE Urine Nitrite NEGATIVE Urine Bilirubin NEGATIVE Urobilinogen Dipstick NORMAL Urine Leukocytes MODERATE A Urine WBC (Auto) TNTC A Urine RBC (Auto) <10 U Epithel Cells (Auto) <10 Urine Bacteria (Auto) 4+ Digoxin Blood Type Antibody Screen Orders Category Date Time Status Nursing- Obtain EKG once Care 04/20/19 17:10 Active CHEST-PORTABLE [RAD] Stat Exams 04/20/19 17:[address] HEAD/C-SPINE W/O CONTRAST [CT] Stat Exams 04/20/19 17:[address] MAXILLOFACIAL(SINUS) W/O CO [CT] Stat Exams 04/20/19 17:08 Completed CBC WITH ELECTRONIC DIFF [HEME] Stat Lab 04/20/19 19:30 Completed COMPREHENSIVE METABOLIC PANEL [CHEM] Stat Lab 04/20/19 19:30 Completed DIGOXIN [TDM] Stat Lab 04/20/19 19:30 Completed PRO B-NATRIURETIC PEPTIDE Stat Lab 04/20/19 19:30 Completed PROTIME WITH INR [COAG] Stat Lab 04/20/19 19:30 Completed PTT [COAG] Stat Lab 04/20/19 19:30 Completed TROPONIN T HIGH SENSITIVITY Stat Lab 04/20/19 19:30 Completed TYPE & SCREEN [BBK] Stat Lab 04/20/19 19:30 Completed URINALYSIS W/POSS RFLX CULT [URINALYSIS] Stat Lab 04/20/19 21:36 Completed URINE CULTURE [RM] Routine Lab 04/20/19 21:38 Received CefTRIAXONE [Rocephin] 1 gm Med 04/20/19 21:49 Discontinued 0.9% Sodium Chloride Inj [Ns] 50 ml IV NOW Diph,Pertuss(Acell),Tet Vac/Pf [Boostrix Vaccine] Med 04/20/19 17:11 Discontinued 0.5 ml IM .ONCE ONE Ertapenem 1 gm/Ns [Invanz 1 gm/Ns] Med 04/20/19 22:56 Active 1 gm in 50 ml IV NOW Morphine Med 04/20/19 17:11 Discontinued 2 mg IV NOW ONE Ondansetron [Zofran] Med 04/20/19 17:11 Discontinued 4 mg IV NOW ONE EKG [EKG] Stat Ther 04/20/19 17:10 Draft Patient signed out to me pending dispo. We were awaiting labs. She does have a UTI with history of MDR UTI in 10/2018. BNP also slightly elevated. She also came from a SNF and will likely not be able to return to SNF tonight. Spoke to Dr Lancaster fondant machine operator for hospitalist who accepted patient for admission. Has already been given rocephin but Dr Lancaster wanted Invanz given. Further orders to be placed per his team. 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 The physician did have a face to face encounter with the patient. <Festus Etienne - Last Filed: 04/20/19 18:15> This chart was documented by the indicated scribe, (Isabell Forbes, Bradly) an d accurately reflects the services I performed and decisions made by Jaimie augustin Kent A., MD, as attested by the provider's signature.
--- NOTE | 2019-04-20 19:31 | EKG Report ---
Test Performed on : 04/20/2019 7:14:09 PM Test Reason : afib Blood Pressure : / mmHG Vent. Rate : 071 BPM Atrial Rate : 077 BPM P-R Int : 000 ms QRS Dur : 100 ms QT Int : 380 ms P-R-T Axes : 000 019 249 degrees QTc Int : 412 ms Atrial fibrillation. Inferior infarct (cited on or before 30-AUG-2017) Marked ST abnormality, possible lateral subendocardial injury Abnormal ECG When compared with ECG of 24-OCT-2018 06:51, Questionable change in initial forces of Inferior leads Unconfirmed Result
[2019-04-20 20:02] LABS: BASO# 0.04 X1000 (0.0-0.2); BASO% 0.3 % (0.0-0.8); EOS# 0.17 X1000 (0.0-0.7); EOS% 1.5 % (0.0-10.0); HEMATOCRIT 41.9 % (37.0-47.0); HEMOGLOBIN 13.5 g/dL (12.0-16.0); LYMPH# 1.51 X1000 (1.2-3.4); LYMPH% 13.1 % (20.5-51.1); MCH 27.4 PG (27-31); MCHC 32.2 g/dL (33-37); MONO# 1.02 X1000 (0.11-0.59); MONO% 8.8 % (1.7-9.3); MPV 10.5 FL (7.4-10.4); NEUT# 8.83 X1000 (1.4-6.5); NEUT% 76.3 % (42.2-75.2); PLT 231 X1000 (130-400); RBC 4.93 XMIL (4.2-5.4); RDW 15.6 % (11.5-14.5); WBC 11.57 X1000 (4.8-10.8)
[2019-04-20 20:10] LABS: INR 1.12; PROTIME 14.6 Seconds (11.0-16.0); PTT 26.1 Seconds (22.3-41.8)
[2019-04-20 20:34] LABS: ALB/GLOB RATIO 1.3; ALBUMIN 3.8 g/dL (3.5-5.0); CALCIUM 9.5 mg/dL (8.8-10.2); CREATININE 1.1 mg/dL (0.5-0.9); POTASSIUM 3.7 mmol/L (3.5-5.1); TOTAL BILIRUBIN 0.36 mg/dL (0.20-1.00); TOTAL PROTEIN 6.8 g/dL (6.3-8.3)
[2019-04-20 21:43] LABS: URINE SOURCE CATH
[2019-04-20 21:44] LABS: BILIRUBIN URINE NEGATIVE (NEGATIVE); BLOOD URINE NEGATIVE (NEGATIVE); COLOR YELLOW; GLUCOSE URINE 150 mg/dL (NEGATIVE); KETONE URINE NEGATIVE (NEGATIVE); LEUKOCYTES URINE MODERATE (NEGATIVE); NITRITE URINE NEGATIVE (NEGATIVE); PH URINE 5.5; PROTEIN URINE 50 mg/dL (NEGATIVE); SP GRAVITY URINE 1.018; TURBIDITY URINE HAZY (CLEAR); UROBILINOGEN URINE NORMAL (NORMAL)
[2019-04-20 21:45] LABS: UR EPITHELIAL CELLS <10 /HPF (<10); URINE BACTERIA 4+ /HPF; URINE RBC <10 /HPF (<10); URINE WBC TNTC /HPF (<10)
[2019-04-20] MEDS ORDERED: ROCEPHIN 1 GM in NS 50 ML IV ONE (21:49)
[2019-04-20] MEDS ORDERED: INVANZ 1 GM/NS 1 GM/50 ML IVPB IV ONE (22:56)
[2019-04-20] MEDS ORDERED: LASIX IV ONE (23:01)
[2019-04-21] MEDS ORDERED: TYLENOL PO PRN (00:17)
[2019-04-21] MEDS ORDERED: INVANZ 1 GM/NS 1 GM/50 ML IVPB IV SCH (00:17)
--- NOTE | 2019-04-21 00:48 | HISTORY AND PHYSICAL ---
PRIMARY CARE PHYSICIAN: Unknown. CHIEF COMPLAINT: Fall and confusion. HISTORY OF PRESENTING ILLNESS: A 73-year-old female with a history of brain cancer, coronary artery disease, hypertension, chronic atrial fibrillation, diabetes mellitus type 2, who apparently had a [facility]. She was brought to the emergency department, she had full workup. She denied any complaint. She states that she just fell. The patient has some ecchymosis around her left orbital region. The patient also has been having chronic UTI and it has been resistant to multiple antibiotics in the past. Due to her presenting symptoms, it was thought that we will place her in for observation for further evaluation and management. At the time of my examination, she denied any fever, chills, chest pain, shortness of breath or any weight changes. Patient is a poor historian. PAST MEDICAL HISTORY: Brain cancer, coronary artery disease, hypertension, dementia, chronic atrial fibrillation, diabetes mellitus type 2, CHF, COPD, left eye blindness. PAST SURGICAL HISTORY: Brain tumor resection, coronary stent, left hip replacement. ALLERGIES: Penicillin, sulfa. CURRENT MEDICATIONS: She does not recall and nursing staff will reconcile. SOCIAL HISTORY: Sixty pack years history of smoking. Denies a history of alcohol or illicit drug use. FAMILY HISTORY: No history of coronary artery disease. REVIEW OF SYSTEMS: Fourteen-point review of systems is as in HPI. Other systems negative. PHYSICAL EXAMINATION: GENERAL: Cooperative, friendly female, she is resting more comfortably now. VITAL SIGNS: Temperature 98.2 degrees, pulse 67, respiration 14, blood pressure 128/79. HEENT: There is moderate ecchymosis around her left orbital region. NECK: No masses. CHEST: Bibasilar rales. CARDIOVASCULAR: Regular rate and rhythm. ABDOMEN: Soft, positive bowel sounds. EXTREMITIES: No edema. NEUROLOGIC: She is awake, alert, oriented x1. GENITOURINARY: No bladder distention. SKIN: Warm. LABORATORIES AND STUDIES: WBC 11.57, hemoglobin 13.5, hematocrit 41.9, platelets 231,000. UA shows moderate leukocytes and +4 bacteria. Sodium 135, potassium 3.7, chloride 96, CO2 is 25, BUN is 21, creatinine is 1.1. Glucose 289. Head CT, no hemorrhage, no injury. Cervical spine, no acute fracture. ASSESSMENT: A 73-year-old female with a history of brain cancer, coronary artery disease, hypertension, dementia and chronic atrial fibrillation, who was brought from [facility] after patient had a fall. She was evaluated in the emergency department and her imaging was unremarkable. However, she does have a history of complicated urinary tract infection which has been resistant to multiple organisms in the past and, due to her presenting symptoms, it was thought that we will place her in for observation and start her on antibiotics and then she can be transferred [facility] to the [facility] in the morning. 1. Status post fall. 2. Complicated urinary tract infection. 3. Chronic atrial fibrillation. 4. Diabetes mellitus type 2. 5. Chronic obstructive pulmonary disease. 6. Dementia, unclear what the baseline is. PLAN: 1. We will admit patient to medical floor with telemetry. 2. Put patient on fall precautions. 3. We will check urine cultures. Start patient on IV antibiotics. 4. Continue to monitor patient on telemetry. 5. Put patient on sliding scale insulin regimen and monitor blood glucose. 6. Continue with duo nebs. 7. We will continue with neuro checks. 8. Put patient on DVT prophylaxis. SCDs. 9. We will continue to follow, reassess, make further recommendation based on patient's clinical course. cc: Nitish Lancaster MD
[2019-04-21 06:29] LABS: BASO# 0.08 X1000 (0.0-0.2); BASO% 0.8 % (0.0-0.8); EOS# 0.21 X1000 (0.0-0.7); EOS% 2.1 % (0.0-10.0); HEMATOCRIT 42.4 % (37.0-47.0); HEMOGLOBIN 13.4 g/dL (12.0-16.0); IMM GRAN# 0.04 X1000 (0.0-0.04); IMM GRAN% 0.4 % (0.0-0.5); LYMPH# 1.74 X1000 (1.2-3.4); LYMPH% 17.2 % (20.5-51.1); MCH 27.3 PG (27-31); MCHC 31.6 g/dL (33-37); MCV 86.4 FL (81-99); MONO# 1.03 X1000 (0.11-0.59); MONO% 10.2 % (1.7-9.3); MPV 10.5 FL (7.4-10.4); NEUT# 7.01 X1000 (1.4-6.5); NEUT% 69.3 % (42.2-75.2); PLT 227 X1000 (130-400); RBC 4.91 XMIL (4.2-5.4); RDW 15.5 % (11.5-14.5); WBC 10.11 X1000 (4.8-10.8)
[2019-04-21 06:51] LABS: CALCIUM 8.5 mg/dL (8.8-10.2); POTASSIUM 3.4 mmol/L (3.5-5.1)
[2019-04-21] MEDS: HUMULIN R SUBQ SCH ×4 (07:00→21:55)
--- NOTE | 2019-04-21 09:55 | PROGRESS NOTE ---
DATE: 04/21/2019 Ms. Fernandes was admitted last night, 04/20/2019. She is a patient of Dr. Franc Baltazar. She had a fall and some confusion. A 73-year-old with a history of brain cancer, coronary artery disease, hypertension, chronic atrial fibrillation, diabetes mellitus type 2, who apparently fell while she was at the group home. She was brought to the emergency department and had a full workup. Denied any specific complaints. States she just fell. The patient had some ecchymosis around her left orbital region. The patient also had been having chronic UTI and had been resistant to multiple antibiotics. Due to her presenting symptoms, I placed her in observation. She is sleeping at the present time. Was in the emergency room most of the night. Finally got a room up here on the 4th floor. PAST MEDICAL HISTORY: She has a history again, to review, brain cancer, coronary artery disease, hypertension, dementia, chronic atrial fibrillation, diabetes mellitus type 2, congestive heart failure, COPD, and left eye blindness. PAST SURGICAL HISTORY: Brain tumor resection, coronary stent, left hip replacement. PHYSICAL EXAMINATION: Sleeping, resting comfortably. Remains afebrile, temperature 97.8 degrees, pulse 68, respirations 16, blood pressure 139/80. HEENT: Pupils are equal and round. Lungs are clear in all lung muhammad. Cardiovascular Examination: Regular rhythm and rate without murmur or S3. Abdomen is soft. Skin is warm and dry. LABORATORY DATA: White blood cell count 11,570, hematocrit 41, platelet count 231,000. Sodium 135, potassium 3.7, chloride 96, BUN 21, creatinine 1.1. Liver transaminases unremarkable. Albumin 3.8. Her chest x-ray is without any sign of injury. Head and cervical spine CT without contrast, head, no hemorrhage no injury; cervical spine, no acute fracture. Maxillofacial CT, no acute bony abnormality. ASSESSMENT AND PLAN: 1. Status post fall. She has a history of brain cancer, apparently tumor resection, coronary artery disease, hypertension, dementia, chronic atrial fibrillation. Brought in from [facility] after a fall. Workup in the emergency room was fairly unremarkable. History of complicated urinary tract infection for which she has had multiple resistant organisms. 2. Complicated urinary tract infection. 3. Chronic atrial fibrillation. 4. Diabetes mellitus type 2. 5. Chronic obstructive pulmonary disease. 6. Dementia. Unclear what her baseline is. REVIEW OF HER ORDERS: She is on Cardizem CD 240 mg a day, ertapenem 1 g IV q.24 hours. Getting morphine, just got 1 dose when she was in the emergency room. Appears comfortable and sleeping at the present time. cc: Nick Arvizu MD
[2019-04-21] MEDS: DIFLUCAN PO SCH (10:22)
[2019-04-21] MEDS: LANOXIN PO SCH (10:22)
[2019-04-21] MEDS: CARDIZEM CD PO SCH (10:22)
[2019-04-21] MEDS: INVANZ 1 GM/NS 1 GM/50 ML IVPB IV SCH (23:47)
[2019-04-22] MEDS: HUMULIN R SUBQ SCH ×4 (06:26→22:59)
[2019-04-22] MEDS: ZOFRAN IV PRN (08:09)
[2019-04-22] MEDS: LANOXIN PO SCH (09:23)
[2019-04-22] MEDS: CARDIZEM CD PO SCH (09:23)
[2019-04-22] MEDS: DIFLUCAN PO SCH (09:23)
--- NOTE | 2019-04-22 10:05 | PROGRESS NOTE ---
DATE: 04/22/2019 OBJECTIVE: General: She is awake and alert. She has large area of ecchymosis around her left eye, but breathing comfortably. She has no complaints. Vital Signs: Temperature 97.6 degrees, pulse 70, respirations 16, blood pressure 147/79. Eyes: Pupils are equal and round. Lungs: Clear in all lung muhammad. Cardiovascular exam: Regular rhythm and rate without murmur or S3. : Urine output was 1300 mL. ASSESSMENT AND PLAN: 1. Status post fall, history of brain cancer, apparently tumor resection in the past. She has a history of coronary artery disease, hypertension, dementia, chronic atrial fibrillation, brought in from [facility] after a fall. Workup in the emergency room fairly unremarkable. No sign of fracture. She has a large area of ecchymosis around her eye. 2. Complicated urinary tract infection in the past. 3. Chronic atrial fibrillation. 4. Diabetes mellitus type 2. 5. Chronic obstructive pulmonary disease. Respiratory status looks good. No exacerbation of chronic obstructive pulmonary disease. 6. Dementia. REVIEW OF HER ORDERS: We have her on ertapenem. I do not see any evidence of infection, except in the urine where she had E coli and it was really sensitive to everything, so we are going to start physical therapy. Hopefully, we can get her back to [facility]. cc: Nick Arvizu MD
[2019-04-22] MEDS ORDERED: CALMOSEPTINE OINTMENT TOP PRN (15:27)
[2019-04-22] MEDS: INVANZ 1 GM/NS 1 GM/50 ML IVPB IV SCH (22:59)
[2019-04-23] MEDS: HUMULIN R SUBQ SCH ×4 (06:44→23:19)
[2019-04-23] MEDS: LANOXIN PO SCH (08:41)
[2019-04-23] MEDS: CARDIZEM CD PO SCH (08:41)
[2019-04-23] MEDS: ZOFRAN IV PRN (08:46)
--- NOTE | 2019-04-23 18:16 | PROGRESS NOTE ---
DATE: 04/23/2019 SUBJECTIVE: I have seen and examined Ms. Fernandes today. Ms. Fernandes refers to be feeling a whole lot better, and she was asking when she will be discharged. Apparently, Ms. Fernandes got admitted because she lost her balance and fell at home. She is telling me that she lives at home. However, it appears in her documentation that she is a long-term [facility] patient. She denied having any urinary symptoms. OBJECTIVE: Vital Signs: Blood pressure 123/69, pulse 49, respirations 16, and temperature 98.2 degrees. General: On general exam, Ms. Fernandes is a 73-year-old female. She is in bed in no distress. Mucosa is pink and moist. Anicteric. Acyanotic. Neck: Supple. Chest: Good air entry bilaterally. There was no crepitations. No rhonchi. Cardiovascular: Regular rate and rhythm. No murmurs, no rubs, no gallops. GI: Abdomen is soft and nontender. Bowel sounds present. Extremities: No pedal edema. [employer] FOUNDER AND DIRECTOR: Patient is awake, alert, and oriented. She does have some discoloration around the left eye from the fall. LABORATORY: No lab work from today. Glucose is 274. MEDICATIONS: The patient's medications have all been reviewed. ASSESSMENT: 1. Status post mechanical fall at home. 2. History of brain cancer status post resection per documentation. 3. Chronic atrial fibrillation currently rate controlled. 4. History of COPD, currently not in exacerbation. 5. Dementia, fairly stable. 6. Multiple psychotropic medications at home noted. Patient was on gabapentin, duloxetine, tramadol, oxycodone, tizanidine and BuSpar all of which have been withheld. 7. E. Coli in the urine, presumably asymptomatic. Patient has been on antibiotics anyway. This will be discontinued once she has been discharged hopefully tomorrow. cc: Olegario Abernathy MD
[2019-04-23] MEDS: INVANZ 1 GM/NS 1 GM/50 ML IVPB IV SCH (23:18)
[2019-04-24] MEDS: NS 1,000 ML IV SCH ×2 (05:03→05:22)
[2019-04-24] MEDS: ZOFRAN IV PRN (06:52)
[2019-04-24] MEDS: HUMULIN R SUBQ SCH ×2 (06:53→11:16)
[2019-04-24 07:03] LABS: HEMOGLOBIN 11.5 g/dL (12.0-16.0); MCH 27.4 PG (27-31); MCHC 31.9 g/dL (33-37); MCV 85.9 FL (81-99); RBC 4.19 XMIL (4.2-5.4); RDW 14.9 % (11.5-14.5); WBC 9.9 X1000 (4.8-10.8)
[2019-04-24 07:50] LABS: AGAP 11; ALBUMIN 3.4 g/dL (3.5-5.0); BUN 8 mg/dL (8-22); CALCIUM 8.6 mg/dL (8.8-10.2); CHLORIDE 107 mmol/L (98-107); COSMO 291; CREATININE 0.8 mg/dL (0.5-0.9); ESTIMATED GFR > 60; GLUCOSE 177 mg/dL (70-104); PHOSPHORUS 2.9 mg/dL (2.7-4.5); POTASSIUM 3.9 mmol/L (3.5-5.1); SODIUM 145 mmol/L (136-145); TCO2 27 mmol/L (25-35)
[2019-04-24] MEDS: LANOXIN PO SCH (10:19)
[2019-04-24] MEDS: CARDIZEM CD PO SCH (10:19)
[2019-04-24 11:39] VITALS: BP 143/83
--- NOTE | 2019-04-24 11:39 | DISCHARGE SUMMARY ---
ADMISSION DATE: 04/20/2019 DISCHARGE DATE: 04/24/2019 DISPOSITION: Back to [facility]. CONSULTATIONS DURING THIS ADMISSION: None. INVASIVE PROCEDURES DONE DURING THIS ADMISSION: None. IMAGING STUDIES OF SIGNIFICANCE: CT scan of the head and cervical spine showed no hemorrhage, no acute injury, and no acute fracture in the cervical spine. A maxillofacial CT scan showed no acute bony abnormality. ASSESSMENT AT THE TIME OF ADMISSION: 1. Status post fall. 2. Complicated urinary tract infection. 3. Chronic atrial fibrillation. 4. Diabetes mellitus. 5. Chronic obstructive pulmonary disease. 6. Dementia. DIAGNOSIS AT THE TIME OF DISCHARGE: 1. Status post mechanical fall. Imaging studies rule out any bone fractures. 2. Remote history of brain cancer, status post resection per documentation. 3. Chronic atrial fibrillation, currently rate controlled. 4. History of chronic obstructive pulmonary disease, not in exacerbation. 5. Dementia, presumably a combination of Alzheimer's and vascular. 6. Multiple psychotropic medications with risk of medication overdose. 7. Escherichia coli UTI. The patient was treated during the hospital course. PRESENTING COMPLAINT: Fall and confusion. HISTORY OF PRESENTING COMPLAINT: Ms. Fernandes is a 73-year-old, female, who is a resident of a [place] [facility], was found to have fallen down, hitting her face at home. The patient is said to have recurrent urinary tract infections, on multiple antibiotics in the past. She was admitted for further medical care. HOSPITAL COURSE: Ms. Fernandes was admitted to the medical floor, was adequately fluid resuscitated, and placed on broad-spectrum IV antibiotics because of her history of multiple UTIs. During the hospital course, imaging studies did not show any fractures. She was evaluated by Physical Therapy as well. She was able to do at least 2 feet with minimum assist. This morning, Ms. Fernandes refers to be feeling a whole lot better. She seems to be at her baseline. She is still kind of disoriented to time, but oriented to person and to place. Her vitals are all stable. Blood pressure is 141/75, pulse of 63, respirations 18, temperature 98 degrees, the patient is saturating well. Orthostatic vitals are negative. We think she is fairly stable to go back to the [place] [facility]. She has been treated with 3 doses of IV Invanz, and we think she has had enough for the Escherichia coli in the urine. All the discharge instructions have been discussed with her. Ms. Fernandes is being discharged in stable condition. TIME SPENT: Time spent for discharge is 35 minutes. cc: Olegario Abernathy MD MTDD
== END 2019-04-24 14:04 | DRG 690 ==
LOC: SUPCPDRO → ED 16:22 → INTOOBSV 04-21 01:46 → EDIPHOLD 04-21 01:46 → SUATTDRO 04-21 01:46 → 4N 04-21 07:13
PROVIDERS: ATTEND Internal Medicine